=== PATIENT | female | born 1955 | race Caucasian/White ===

== ENCOUNTER 2018-05-13 20:11 | Emergency (ER) | payer BC, OTHER, SELFPAY ==
[2018-05-13 20:11] VITALS: BP 191/105; PULSE 84; RESP 20; TEMP 36.7; O2SAT 100; BMI 28.8
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
[2018-05-13] MEDS: Morphine 4 MG/ML Syringe IM (22:22)
[2018-05-13] MEDS: Ondansetron 4 MG/2 ML Vial IM (22:22)
[2018-05-13] MEDS: Diphth,Pertuss(Acell),Tet Vac 0.5 ML Vial IM (22:23)
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
[2018-05-13] MEDS: HYDROcodone Bitartrate/Apap 5/325 Tablet PO (23:04)
--- NOTE | 2018-05-13 23:04 | ED.DEP ---
ED Disposition - Plan for ED Patient: Chief Complaint: Lower Extremity Injury Instructions: ED Fx Foot Prescriptions: Hydrocodone Bitart/Apap 5-325 [[place] 5MG-325MG] 1 tab PO Q4H PRN PRN 2 Days #20 tab PRN Reason: Pain Cephalexin [Keflex] 500 mg PO Q6 #40 cap Referrals: Tonya Adams DO [Primary Care Provider] - Margarita Boyce DPM [STAFF PHYSICIAN] - 1 Day for another exam
[2018-05-13] MEDS: Cephalexin 250 MG Capsule 500 MG PO (23:05)
[2018-05-13 23:09] VITALS: BP 181/100; PULSE 81; RESP 15; O2SAT 98
== END 2018-05-13 23:20 | disposition home or self-care (01) ==
PROVIDERS: Emergency Provider Emergency Medicine; Family Provider Internal Medicine; PCP Internal Medicine
DX: S97.82XA Crushing injury of left foot, initial encounter (principal); S92.332A Displaced fracture of third metatarsal bone, left foot, initial encounter for closed fracture; S92.312A Displaced fracture of first metatarsal bone, left foot, initial encounter for closed fracture; S92.322A Displaced fracture of second metatarsal bone, left foot, initial encounter for closed fracture; S92.512A Displaced fracture of proximal phalanx of left lesser toe(s), initial encounter for closed fracture; S91.312A Laceration without foreign body, left foot, initial encounter; W22.8XXA Striking against or struck by other objects, initial encounter; Y93.9 Activity, unspecified; Y92.9 Unspecified place or not applicable
CPT/HCPCS: 12001; 29515; 73630; 90715; 96372; 99283; J2405

== ENCOUNTER → 2018-05-18 13:33 | Outpatient (CLI) | payer BC, OTHER, SELFPAY ==
[2018-05-18 14:51] LABS: Vitamin D,25 Hydroxy 27.8 ng/mL (29.95-100.01)
== END ==
PROVIDERS: Family Provider Internal Medicine; PCP Internal Medicine; Referring Provider Podiatrist; Visit Provider Podiatrist
DX: E55.9 Vitamin D deficiency, unspecified (principal); S92.309A Fracture of unspecified metatarsal bone(s), unspecified foot, initial encounter for closed fracture; X58.XXXA Exposure to other specified factors, initial encounter; Y93.9 Activity, unspecified; Y92.9 Unspecified place or not applicable
CPT/HCPCS: 36415; 82306

== ENCOUNTER → 2019-05-11 10:50 | Outpatient (CLI) | payer OTHER, SELFPAY ==
[2019-05-11 10:33] VITALS: BMI 28.8
--- NOTE | 2019-05-11 10:51 | RAD_ITS ---
STUDY: X-RAY - PELVIS AND LEFT HIP REASON FOR EXAM: Pain. TECHNIQUE: 2 views of the pelvis and hip. COMPARISON: None. FINDINGS: There are surgical clips in the right hemipelvis. There are degenerative changes of the lower lumbar spine. Normal bilateral iliac wings, sacroiliac joints and visualized sacrum. Normal bilateral superior and inferior pubic rami. There are mild degenerative changes of the pubic symphysis. Normal bilateral ischial tuberosities. Normal visualized femoral head. There is a small marginal osteophyte of the left femoral head and moderate to severe joint space narrowing of the superior left hip. RAD/HIP, UNI W/ Pelvis 2-3 Views IMPRESSION: Left hip arthrosis. Electronically Signed: Charly Aguirre MD at 10:28 EDT Tel , Service support ,
== END ==
PROVIDERS: Family Provider Internal Medicine; PCP Internal Medicine; Referring Provider Orthopaedic Surgery; Visit Provider Orthopaedic Surgery
DX: M25.552 Pain in left hip (principal)
CPT/HCPCS: 73502

== ENCOUNTER 2019-06-01 23:37 | Emergency (ER) | payer OTHER, SELFPAY ==
[2019-05-11 10:33] VITALS: BMI 28.8
[2019-06-01 23:38] VITALS: BP 174/88; PULSE 84; RESP 19; TEMP 36.4; O2SAT 100; BMI 28.2
--- NOTE | 2019-06-02 00:02 | ED.VIS.GEN ---
History of Present Illness Chief Complaint: Lower Extremity Injury Informant: Patient Narrative: Patient presents with left hip pain that is chronic. She saw orthopedics and degenerative changes. She is in physical therapy which is been worsening her pains at nighttime. In the last 3 days she has had difficulty with the pain and sleeping. Requesting something stronger for pain. She was told they would not give her narcotics. She is on Mobic which has not been helping much. Worse with movement. - Past Medical History (1) HTN (hypertension) Status: Chronic Past Medical History - Allergies and Home Meds Allergies/Adverse Reactions: Allergies No Known Allergies Allergy (Verified 06/01/19 23:41) Primary Care Physician: Tonya Adams DO [Primary Care Provider] - Prior records reviewed: Yes Past Medical History: - - Problem list see Surgical History: - - vein stripping Smoking Status: Never smoker Alcohol: None Drugs: None Review of Systems General: Denies: Chills, Fever, Sweats Eyes: Denies: Visual changes - bilaterally, Diplopia ENT: Denies: Rhinorrhea, Sore throat Cardiovascular: Denies: Chest pain, Palpitations Respiratory: Denies: Dyspnea, Cough, Dyspnea on exertion Gastrointestinal: Denies: Abdominal pain, Nausea, Vomiting, Diarrhea, Melena, Hematochezia Genitourinary: Denies: Dysuria, Hematuria, Frequency Musculoskeletal: Reports: Extremity Pain. Denies: Back pain Skin: Denies: Rash, Wounds Neurological: Denies: Headache, Weakness, Numbness Physical Exam Vital Signs/Narrative: Vital Signs Temp Pulse Resp BP Pulse Ox 06/01/19 23:38 97.5 F L 84 19 H 174/88 H 100 General: Well nourished, Well developed, No Acute Distress Head: Normocephalic, Atraumatic Eyes: Perrl, EOMI ENT: Moist mucous membranes, No rhinorrhea Neck: Supple, Nontender Cardiovascular: Regular rate, Regular rhythm, No murmurs Respiratory: No distress, CTA bilaterally, Chest nontender Abdomen: Soft, Nontender, Nondistended, Normal bowel sounds Back: Nontender, Normal Inspection Extremities: No edema, Tenderness - Tenderness left hip laterally with decreased range of motion secondary to pain.. Negative for: Nontender Skin: Normal color, No rash Neurological: Alert, Oriented x3, Cranial nerves II-XII grossly intact, Normal Strength, Normal Sensation Psychological: Normal affect, Normal Mood Diagnostic/Tx/Re-eval - Medical Decision Making Patient given oxycodone in the department with a short course of narcotics to help her with breakthrough pain. She will follow-up as an outpatient ED Disposition - Plan for ED Patient: Disposition: Home or Assisted Living Diagnosis: Arthritis of left hip Instructions: ED Osteoarthritis Prescriptions: Oxycodone HCl/Acetaminophen [Percocet 5/325] 1 - 2 tab PO Q6H PRN PRN 3 Days #12 tab PRN Reason: Pain Prescription Printed Referrals: Tonya Adams DO [Primary Care Provider] -
[2019-06-02] MEDS: oxyCODONE 5 MG Tablet 10 MG PO (00:21)
== END 2019-06-02 00:26 | disposition home or self-care (01) ==
PROVIDERS: Emergency Provider Emergency Medicine; Family Provider Internal Medicine; PCP Internal Medicine
DX: M16.12 Unilateral primary osteoarthritis, left hip (principal); I10 Essential (primary) hypertension; Z79.899 Other long term (current) drug therapy
CPT/HCPCS: 99283

== ENCOUNTER 2019-06-22 10:30 | Outpatient (RCR) | payer OTHER, SELFPAY ==
[2019-05-11 10:33] VITALS: BMI 28.8
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
--- NOTE | 2019-06-22 11:06 | HP.PTDCSUM ---
HP - PT D/C Summary It has been my pleasure to treat KATIE GARCIA under orders from Ni Perry DO, for the diagnosis of L hip OA/ DDD LS spine for a total of 11 visit(s). Discharge Date: 06/22/19 Please see the following information for a summary of their discharge status. - Subjective Subjective: L THR is Jul 16. He was glad that she was doing AT. She was in the ER for pain a few weeks ago. She feels that she is getting stronger. She was really achy last night but yesterday she was feeling good. Pt feels that she can do her exercises on her own and [place] gave her an exercises sheet. Walking on a good day pain is 3-4/10 and on a bad day she is worse. Occ she still has the feeling that her L leg will give out on her.... not quite as bad. - Pain L hip pain Pain Intensity (Out of 10): 6 back pain Pain Intensity (Out of 10): 0 - Overall Improvement % Improvement: 70 - Objective Objective/Function: Gait: walks with flexed trunk and short stride on the L and decreased stance time on the L. LE MMT: Increase L hip strength by 1/2 muscle grade ( at time of the eval: LE MMT: R hip flex 4/5 and L hip flex 4-/5, R hip abd 4/5 and L hip abd 4-/5, B knee flex and ext 4/5, pt is able to do 1/2 normal ROM bridge - Goals Goal 1:: I HEP Goal Progress: Goal Met Goal 2:: Decrease L hip pain by 50% to 5/10 with walking Goal Progress: Progressing Goal 3:: Increase L hip strength by 1/2 muscle grade ( at time of the eval: LE MMT: R hip flex 4/5 and L hip flex 4-/5, R hip abd 4/5 and L hip abd 3+/5, B knee flex and ext 4/5, pt is able to do 1/2 normal ROM bridge. Pt is able to heel raise but only 1/2 the normal ROM and toe raise with slight LOB). Goal Progress: Progressing Goal 4:: Walk with a more normal gait pattern and feel like she can walk without having to take the cane with her due to L leg giving out on her. Goal Progress: Progressing - Plan Plan: DC PT - D/C Information Discharge Comments: DC PT to I HEP or I AT appointment If there are questions or concerns regarding this patient's physical therapy, please feel free to call me at [phone]. Thank you for the referral of this patient. Sincerely, Rika Lo, MPT
== END 2019-06-22 19:00 | disposition home or self-care (01) ==
LOC: PT 10:30
PROVIDERS: Family Provider Internal Medicine; PCP Internal Medicine; Visit Provider Orthopaedic Surgery
DX: M16.12 Unilateral primary osteoarthritis, left hip (principal); M51.37 Other intervertebral disc degeneration, lumbosacral region
CPT/HCPCS: 97113; 97161; 97530

== ENCOUNTER → 2019-12-03 | Outpatient (CLI) | payer OTHER, SELFPAY ==
[2019-12-03 16:14] LABS: Potassium 5.1 mmol/L (3.5-5.1)
== END | disposition home or self-care (01) ==
PROVIDERS: PCP Internal Medicine; Referring Provider Internal Medicine; Visit Provider Internal Medicine
DX: E87.5 Hyperkalemia (principal)
CPT/HCPCS: 84132

== ENCOUNTER 2020-05-05 09:30 | Outpatient (RCR) | payer OTHER, SELFPAY ==
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
--- NOTE | 2020-05-05 10:21 | HP.PTDCSUM ---
It has been my pleasure to treat KATIE GARCIA referred by Ignacio Lawrence PA-C, with the diagnosis of LUMBAR DDD AND STRAIN. S/P LEFT THR. for a total of 10 visit(s). Discharge Date: Please see the following information for a summary of their discharge status. Subjective: PATIENT REPORTS SHE DOESN'T HAVE THE TINGLING IN HER LEGS AT ALL ANYMORE. STATES SHE HAS SKIPPED DOSES OF HER MALOXACAM AND STILL NO PAIN. STATES SHE CAN GO ALL DAY WITHOUT TAKING ANYTHING FOR PAIN AND WITHOUT PAIN. STATES SHE IS DOING HER HOME EX PROGRAM AND IT IS JUST RIGHT. DID SOME OF THE WATER EX'S INDEP'LY TODAY TOO WITHOUT DIFFICULTY. PATIENT REPORTS SHE HAS A MEMBERSHIP. STATES SHE IS HAPPY WITH HOW PT HAS GONE AND SHE IS READY TO BE DISCHARGED. % Improvement: 100 Objective/Function: PATIENT WAS SEEN TODAY FOR RE-ASSESSMENT OF PROGRESS TOWARD THE SET PT GOALS AND THE NEED FOR FURTHER PHYSICAL THERAPY VS READINESS FOR DISCHARGE. ALL GOALS HAVE BEEN MET AND PATIENT IS APPROPRIATE FOR DISCHARGE TO INDEP EX AT THIS TIME. SHE IS AGREEABLE. UPON EXAM TODAY OBJECTIVE TESTS ARE SIMILAR TO INITIAL EVAL BUT SHE IS REPORTING LESS PAIN, IMPROVED FUNCTION AND HAS TOLERATED PROGRESSIVE RESISTIVE EX WELL AND IS NOW INDEP WITH BOTH HOME AND WATER EX'S. Goal 1:: DECREASE C/O LOW BACK PAIN Goal Progress: Goal Met Goal 2:: IMPROVE LIFTING, STANDING, SOCIAL LIFE AND WORK/HOMEMAKING FUNCTION Goal Progress: Goal Met Goal 3:: INSTRUCT IN PROPHYLAXIS Goal Progress: Goal Met Plan: D/C TO INDEP EX. If there are questions or concerns regarding this patient's physical therapy, please feel free to call me at [phone]. Thank you for the referral of this patient. Sincerely, Kristine Barrera, PT, Cert MDT
== END 2020-05-05 17:00 | disposition home or self-care (01) ==
LOC: PT 09:30
PROVIDERS: PCP Internal Medicine; Referring Provider Physician Assistant Surgical; Visit Provider Physician Assistant Surgical
DX: M51.36 Other intervertebral disc degeneration, lumbar region (principal); S39.012D Strain of muscle, fascia and tendon of lower back, subsequent encounter; Z96.642 Presence of left artificial hip joint
CPT/HCPCS: 97112; 97113; 97162; 97164

== ENCOUNTER → 2021-01-26 | Outpatient (CLI) | payer OTHER, SELFPAY | END | disposition home or self-care (01) | LOC: LABSPEC 15:01 | PROVIDERS: PCP Internal Medicine; Referring Provider Internal Medicine; Visit Provider Internal Medicine | DX: E87.5 Hyperkalemia (principal) | CPT/HCPCS: 84132 ==

== ENCOUNTER 2021-03-01 10:14 | Observation (INO) | payer OTHER, SELFPAY ==
[2021-03-01] VITALS (11 sets, daily range): BP systolic 124–169; BP diastolic 61–99; PULSE 84–105; RESP 16–18; TEMP 36.7–37.6; O2SAT 94–100; BMI 30.3
--- NOTE | 2021-03-01 | HERN_PTH ---
PATIENT: KATIE GARCIA LOC: [id number] U#:[id number] AGE/SX: 65/F ROOM: [facility] RE03/01/[address]: Dr. Soha Tellez MD : [id number] BED: 1 DIS: 03/02/2021 SPEC #: [id number] RECD: 03/02/21 06:35 STATUS: RADHA LIM #: [id number] BILLY: 03/01/21 00:[address]: Soha Tellez DEPT: SURGICAL PATHOLOGY RECD BY: León Wren ENTERED: 03/02/21 08:06 SP TYPE: Hernia OTHR DR: DO Dr. Rex Eagle DO Tissues: HERNIA Procedures: Surgery Specimen Level II HEADER OPERATION: Repair of incarcerated incisional hernia PRE-OP DIAGNOSIS: Incarcerated incisional hernia TISSUE SUBMITTED: Incisional hernia sac MICROSCOPIC DIAGNOSIS Incisional hernia sac, herniorrhaphy: Fibrosis and minimal chronic inflammation. AM:bianca 03/05/2021 MICROSCOPIC DESCRIPTION Slides are reviewed. GROSS DESCRIPTION Received in fixative is one container labeled with the patient's name and designated incisional hernia sac. The specimen consists of two pieces of maurice-pink soft tissue that in aggregate measure 6 x 1 x 0.5 cm. No mass lesion is identified. The specimen is totally submitted in one cassette. / SJ:bianca 03/02/21 TC:5 CPT: 02004
--- NOTE | 2021-03-01 10:35 | EDS_ITS ---
HPI History of Present Illness Chief Complaint: Abd Pain Informant: patient Onset/Context/Timing Onset: Days Context: Gradual Onset Current Severity: Mild Maximum Severity: Moderate Narrative Narrative: Patient present secondary to abdominal pain. She reports eating dinner Friday evening and having it does not quite settle right. By Friday afternoon she developed sharp pain in the periumbilical region. She started vomiting. She states she has not had a bowel movement since that time but she is passing some gas. She denies fever or chills. Prior abdominal surgery significant for hernia repair with a small area of small bowel resection. [facility] Medical History (Updated 03/01/21 @ 14:[address] Selena Gordon MD) Arthritis HTN (hypertension) Home Medications amlodipine 5 mg tablet 5 mg PO DAILY #30 tab 05/11/19 [History Last Taken Unknown] lisinopril 20 mg tablet 20 mg PO BID #60 tab 05/11/19 [History Last Taken Unknown] ropinirole 0.5 mg tablet 1 mg PO QHS #30 tab 05/11/19 [History Last Taken Unknown] Allergy/AdvReac Type Severity Reaction Status Date / Time Iodinated Contrast Media AdvReac Other Verified 03/01/21 10:16 [CONTRASTS] Family History Mother Rheumatoid arthritis Surgical History (Updated 03/01/21 @ 10:[address] Selena Gordon MD) H/O hernia repair S/P hip replacement S/P small bowel resection Social History Smoking Status: Never smoker ROS ROS ED Constitutional Constitutional ED: Denies chills or fever(s) Eyes Eyes: Denies change in vision ENT ENT ED: Denies sore throat Cardiovascular Cardiovascular: Denies chest pain Respiratory/Chest Respiratory/Chest: Denies cough or dyspnea Gastrointestinal Gastrointestinal: Reports abdominal pain, constipation, nausea and vomiting; Denies diarrhea Genitourinary Genitourinary ED: Denies dysuria Musculoskeletal Musculoskeletal: Denies back pain Integumentary Denies rash Neurologic Neurologic: Denies headache(s) or weakness Psychiatric Psychiatric: Denies anxiety or depression Endocrine Endocrinology: Denies polydipsia or polyuria Allergic/Immunologic Allergic/Immunologic ED: Denies urticaria EXAM Physical Exam Const Vital Signs: 03/01/21 10:16 03/01/21 12:30 03/01/21 13:59 Temperature 98.4 F Temperature Source Temporal Pulse Rate 84 105 H 104 H Respiratory Rate 16 16 18 Blood Pressure 163/85 H 157/99 H 169/94 H Blood Pressure Mean 111 118 119 Pulse Ox 100 98 96 Oxygen Delivery Method Room Air Room Air Room Air Positive well nourished and well developed General Appearance ED: well developed HEENT Reports normocephalic and head/scalp atraumatic Eyes PERRL and EOMs intact bilaterally Neck supple Chest Wall inspection of chest normal and palpation of chest normal Resp normal respiratory effort and clear to auscultation bilaterally Cardio regular rate and regular rhythm GI non-tender Auscultation: hypoactive bowel sounds Palpation: soft Extremity normal to inspection Neuro oriented x3 and no sensory deficits noted Sensorium / Orientation: alert Motor Exam: strength 5/5 throughout Psych mental status grossly normal Skin no rashes or lesions noted MDM MDM MDM Narrative Medical decision making narrative: Patient is given Zofran and IV fluids. Labs and CT scan of the abdomen and pelvis is obtained. Lab Data Attestation: I reviewed the patient's lab results. Labs: Laboratory Results - last 24 hr 03/01/21 03/01/21 11:00 11:00 WBC 10.2 RBC 4.82 Hgb 14.5 Hct 42.4 MCV 88.0 MCH 30.1 MCHC 34.2 RDW Std Deviation 39.8 RDW Coeff of Armando 12.3 Plt Count 466 H MPV 8.4 Immature Gran % (Auto) 0.200 Neut % (Auto) 84.8 H Lymph % (Auto) 7.2 L [place] % (Auto) 7.5 Eos % (Auto) 0.0 Baso % (Auto) 0.3 Absolute Neuts (auto) 8.6 H Absolute Lymphs (auto) 0.73 L Nucleated RBC % 0 Sodium 122 L Potassium 3.6 Chloride 81 L Carbon Dioxide 33.0 H Anion Gap 8 BUN 34 H Creatinine 2.88 H Estim Creat Clear Calc 18.47 Est GFR (MDRD) Af Amer 21 L Est GFR (MDRD) Non-Af 18 L BUN/Creatinine Ratio 11.8 Glucose 139 H Calcium 10.9 H Total Bilirubin 0.80 Direct Bilirubin 0.23 AST 33 ALT 26 Alkaline Phosphatase 122 H Total Protein 9.6 H Albumin 4.5 Globulin 5.1 H Radiography Diagnostic Testing: Radiology Impression Abdomen CT 03/01/21 12:20 IMPRESSION: Umbilical hernia containing small bowel causing proximal small bowel dilatation and obstruction. Electronically Signed: Severo Wright MD at 13:02 EDT , Service support , Treatment and Re-Evaluation Comments:: Patient previously had problems with low sodium and at that time is felt to be secondary to getting IV contrast for CT image. Therefore today CT was done with p.o. contrast only. Patient's lab work actually does show recurrent hyponatremia with a sodium of 122. Patient also has acute renal insufficiency with a creatinine of 2.88. Most recent creatinine was 0.7. CT scan reveals evidence of a small bowel obstruction secondary to an umbilical hernia. Test results discussed with patient and daughter at bedside. I will speak with surgery on-call. Discharge Plan Triage Chief Complaint: Abd Pain ED Provider: Selena Gordon Dx/Rx/DC Orders Clinical Impression: Acute renal failure, Hyponatremia, SBO (small bowel obstruction), Hernia, umbilical Prescriptions: No Action amlodipine 5 mg tablet 5 mg PO DAILY Qty: 30 RF: 0 ropinirole 0.5 mg tablet 1 mg PO QHS Qty: 30 RF: 0 lisinopril 20 mg tablet 20 mg PO BID Qty: 60 RF: 0 Primary Care Provider: Tonya Adams Referrals: Tonya Adams DO [Primary Care Provider] - Disposition Disposition: Acute Care Hospital [facility]
[2021-03-01] MEDS: 0.9% Normal Saline 1,000 ML 150 ML IV ×2 (11:04→18:28)
[2021-03-01] MEDS: Ondansetron 4 MG/2 ML Vial IV (11:04)
[2021-03-01 11:11] LABS: Absolute Lymphocyte Count 0.73 X10^3/uL (0.83-4.51); Absolute Neutrophil Count 8.6 X10^3/uL (2.0-7.7); Basophil# 0.03 X10^3/uL; Basophil% 0.3 % (0-1); Hematocrit 42.4 % (37-47); Hemoglobin 14.5 g/dL (12.0-15.0); Lymphocyte # 0.73 X10^3/ul (0.83-4.51); Lymphocyte % 7.2 % (19-41); Mean Corp Hgb Conc 34.2 g/dL (32-36); Mean Corpuscular Hgb 30.1 pg (27.0-32.0); Mean Platelet Vol. 8.4 fl (6.2-12.0); Monocyte# 0.76 X10^3/uL; Monocyte% 7.5 % (0-10); NRBC Flagged by Analyzer 0 % (0-5); Neutrophil # 8.62 X10^3/uL (2.7-7.7); Neutrophil % 84.8 % (47-70); Platelet Count 466 K/mm3 (150-450); RBC Distribution Width CV 12.3 % (11.6-14.6); RBC Distribution Width SD 39.8 fl (35.1-43.9); Red Blood Count 4.82 M/mm3 (4.2-5.4); White Blood Count 10.2 K/mm3 (4.4-11.0)
[2021-03-01 11:27] LABS: AST(SGOT) 33 U/L (15-37); Alanine Aminotransfer ALT/SGPT 26 U/L (13-56); Albumin, Serum 4.5 g/dL (3.2-5.0); Alkaline Phosphatase 122 U/L (45-117); Anion Gap 8 (5-15); BUN 34 mg/dL (7-18); BUN/Creat Ratio 11.8 RATIO (10-20); Bilirubin, Direct 0.23 mg/dL (0.00-0.30); Calcium,Total 10.9 mg/dL (8.5-10.1); Chloride 81 mmol/L (98-107); Creatinine, Serum 2.88 mg/dL (0.55-1.02); EST Glomerular Filtration Rate 18 mL/min (>60); Est Glom Filt Rate - Afr Amer 21 mL/min (>60); Estimated Creatinine Clearance 18.47 ml/min; Globulin 5.1 g/dL (2.2-4.2); Glucose 139 mg/dL (74-106); Potassium 3.6 mmol/L (3.5-5.1); Protein, Total 9.6 g/dL (6.4-8.2); Sodium Level 122 mmol/L (136-145)
[2021-03-01] MEDS: 0.9% Normal Saline 1,000 ML 999 ML IV (12:06)
--- NOTE | 2021-03-01 12:20 | CT_ITS ---
STUDY: CT ABDOMEN AND PELVIS WITHOUT CONTRAST REASON FOR EXAM: Female, 65 years old. Abd pain RADIATION DOSAGE (If Supplied By Facility): CTDIvol = ( 19.82 ) mGy, DLP = ( 1054.84 ) mGycm TECHNIQUE: Transaxial images were obtained from the dome of the diaphragm to the symphysis pubis with oral contrast, and without intravenous contrast. Sagittal and coronal images were reconstructed. Individualized dose optimization techniques were used for this CT. COMPARISON: Comparison is made with prior study dated 03/29/2015. FINDINGS: Minimal increased markings at the lung bases suggest mild scarring or atelectasis. Coronary artery calcification. Normal liver. Normal gallbladder and extrahepatic biliary system. Normal spleen. Normal pancreas. Normal bilateral adrenal glands. Normal right kidney. Normal left kidney. Normal visualized stomach. There are dilated loops of the small intestine with a non-distended colon consistent with a small bowel obstruction. Small bowel loop is trapped within the umbilical hernia. The distal small bowel is unremarkable. There are multiple colonic diverticula consistent with diverticulosis. The appendix is visualized and appears normal. Normal abdominal aorta. Normal inferior vena cava. Normal retroperitoneum. Normal urinary bladder. There is evidence of prior right inguinal hernia repair. There are diffuse degenerative changes of the visualized lumbar spine. The patient is status post left total hip replacement. CT/Abdomen/Pel W ORAL Cont Only IMPRESSION: Umbilical hernia containing small bowel causing proximal small bowel dilatation and obstruction. Electronically Signed: Severo Wright MD at 13:02 EDT , Service support ,
--- NOTE | 2021-03-01 14:56 | EKG12_ITS ---
Test Reason : ABD PAIN Blood Pressure : / mmHG Vent. Rate : 105 BPM Atrial Rate : 105 BPM P-R Int : 172 ms QRS Dur : 084 ms QT Int : 334 ms P-R-T Axes : 042 000 010 degrees QTc Int : 441 ms Sinus tachycardia with Premature atrial complexes Moderate voltage criteria for LVH, may be normal variant Inferior infarct , age undetermined Abnormal ECG Confirmed by GIGI TAYLOR, JOSUE ([id number]), publishing editor SHELBY RIOJAS ([id number]) on 03/05/2021 9:13:22 AM Referred By: ALBARO Confirmed By:JOAN YU MD
--- NOTE | 2021-03-01 14:57 | PCM.HP.STD ---
HPI - General HPI Narrative KATIE GARCIA, is a 65 F who presents to the ER due to abdominal pain and nausea and vomiting. Patient states this started on Friday. Patient last had some broth yesterday but did had vomiting afterwards. Patient admits to some abdominal pain near her umbilicus towards the right also feels a bulge. Patient previously had surgery due to incarcerated right femoral hernia in 2014 patient did have a small bowel resection at that time. Patient's hernia per CT abdomen pelvis is at the infraumbilical incision. Patient's white blood count is normal with a left shift. Patient does have hyponatremia of 122 as well as acute kidney failure likely due to nausea vomiting/dehydration. [facility] Medical History Arthritis HTN (hypertension) Non-smoker Home Medications amlodipine 5 mg tablet 5 mg PO DAILY #30 tab 05/11/19 [History Last Taken 02/27/21] lisinopril 20 mg tablet 20 mg PO BID #60 tab 05/11/19 [History Last Taken 02/27/21] acetaminophen [Tylenol Extra Strength] 1,000 mg PO DAILY PRN 03/01/21 [History Last Taken 02/26/21] ropinirole 2 mg PO QHS 03/01/21 [History Last Taken 02/28/21] Allergy/AdvReac Type Severity Reaction Status Date / Time Iodinated Contrast Media AdvReac Other Verified 03/01/21 10:16 [CONTRASTS] Family History Mother Rheumatoid arthritis Surgical History (Updated 03/01/21 @ 10:[address] Selena Gordon MD) H/O hernia repair S/P hip replacement S/P small bowel resection Social History Smoking Status: Never smoker Vital Signs Vital Signs Vital Signs: 03/01/21 10:16 03/01/21 12:30 03/01/21 13:59 Temperature 98.4 F Temperature Source Temporal Pulse Rate 84 105 H 104 H Respiratory Rate 16 16 18 Blood Pressure 163/85 H 157/99 H 169/94 H Blood Pressure Mean 111 118 119 Pulse Ox 100 98 96 Oxygen Delivery Method Room Air Room Air Room Air Weight Weight: 190 lb 14.725 oz Body Mass Index (BMI) 30.3 Physical Exam Const alert, oriented x3 and no apparent distress HEENT normocephalic and head/scalp atraumatic Resp normal respiratory effort Cardio regular rate GI soft to palpation; Negative for non-distended Palpation: tender periumbilical (Bulge noted to the right of the umbilicus) and hernia other (Incisional hernia near umbilicus); Negative for guarding Extremity no clubbing, cyanosis or edema Neuro CN's II-XII intact bilaterally Psych mental status grossly normal Results Lab / Micro Data Result Diagrams: 03/01/21 11:00 03/01/21 11:00 Labs: Laboratory Results - last 24 hr 03/01/21 11:00: WBC 10.2, RBC 4.82, Hgb 14.5, Hct 42.4, MCV 88.0, MCH 30.1, MCHC 34.2, RDW Std Deviation 39.8, RDW Coeff of Armando 12.3, Plt Count 466 H, MPV 8.4, Immature Gran % (Auto) 0.200, Neut % (Auto) 84.8 H, Lymph % (Auto) 7.2 L, [place] % (Auto) 7.5, Eos % (Auto) 0.0, Baso % (Auto) 0.3, Absolute Neuts (auto) 8.6 H, Absolute Lymphs (auto) 0.73 L, Nucleated RBC % 0 03/01/21 11:00: Sodium 122 L, Potassium 3.6, Chloride 81 L, Carbon Dioxide 33.0 H, Anion Gap 8, BUN 34 H, Creatinine 2.88 H, Estim Creat Clear Calc 18.47, Est GFR (MDRD) Af Amer 21 L, Est GFR (MDRD) Non-Af 18 L, BUN/Creatinine Ratio 11.8, Glucose 139 H, Calcium 10.9 H, Total Bilirubin 0.80, Direct Bilirubin 0.23, AST 33, ALT 26, Alkaline Phosphatase 122 H, Total Protein 9.6 H, Albumin 4.5, Globulin 5.1 H Radiology Impression Abdomen CT 03/01/21 12:20 IMPRESSION: Umbilical hernia containing small bowel causing proximal small bowel dilatation and obstruction. Electronically Signed: Severo Wright MD at 13:02 EDT , Service support , Assessment & Plan Assessment/Plan (1) Incarcerated incisional hernia: PLAN: Discussed with patient and her daughter would plan for surgery for repair of incisional hernia repair with possible bowel resection, possible mesh. Discussed patient the procedure as well as risk include not limited to bleeding, infection, recurrent hernia, need for bowel resection, and anesthesia. Patient and her daughter had no further question this time. Hyponatremia, acute kidney failure. We will have medicine on for consult to help with these issues. Likely also due to patient's nausea and vomiting since Friday. Soha Tellez M.D. Pager: [phone] [facility] [address] [place] [address] [address] [place] [address] Office: [phone] Procedure Criteria Type of Procedure Procedure Type: Elective Elective Risks - COVID COVID Risk Discussion: The surgeon/proceduralist and patient have discussed in detail the risk of exposure to and/or potential harm posed by the COVID-19 virus with having a surgery/procedure at this time versus the risk of delaying the surgery/procedure. It is not possible to know either the risk of delaying the surgery or procedure or chance of getting an infection with perfect accuracy, but a joint decision was made between the patient and the surgeon/proceduralist to proceed at this time with the scheduled surgery/procedure as indicated on the consent form.
--- NOTE | 2021-03-01 14:59 | RAD_ITS ---
HISTORY: NG/OG Verification EXAMINATION/TECHNIQUE: XR Abdomen 1 View: COMPARISON: CT abdomen and pelvis same day FINDINGS: Enteric tube in the stomach. Scattered distended small bowel loops persist. No acute bony abnormalities. RAD/Abdomen Single View (Portable) IMPRESSION: Enteric tube in the stomach. at 1639 Reported and signed by: Rod Arnold MD Electronically Signed: Rod Arnold MD at 16:38 EDT Tel , Service support ,
[2021-03-01] MEDS: Bupivacaine Mpf 0.5% 30 ML VIAL (16:30)
--- NOTE | 2021-03-01 17:01 | OP.PCM_ITS ---
Report of Operation Date of Procedure: 03/01/21 Pre-Operative Diagnosis: Incarcerated incisional hernia causing bowel obstructi on Post-Operative Diagnosis: Same Surgery/Procedure Performed:: Repair of incisional hernia Surgeon: Soha Tellez resident service coordinator: Kae Glass Type of Anesthesia: General/Supplemental Anesthesiologist: Rogelio Phelps Special Medications: Ancef 2 g IV x1 Specimen's removed: Hernia sac Estimated Blood Loss (mL): 10 cc Fluids Replaced: 700 cc Description of Procedure: Patient was brought into the room placed supine on the operating table. Correct patient, procedure, site, positioning, special, was verified prior to procedure. General anesthesia was induced. The abdomen was prepped draped in usual sterile fashion. The previous curvilinear incision below the umbilicus was reincised with with a 15 blade scalpel. This was deepened with electrocautery. Small bowel was noticed below blue discoloration, was able to enlarged the hernia opening and the bowel did pink up. [place] was placed on the small bowel and was placed back in the abdomen. The fascia of the hernia was cleared. The small bowel was reexamined and was viable. The hernia was closed with 3 [id number] 0 Prolene sutures. The wound was irrigated with saline. Hemostasis achieved with electrocautery. The incision was closed with 3-0 Vicryl subdermal interrupted sutures and the skin was closed with interrupted 4-0 Monocryl sutures. Steri- Strips and Telfa and OpSite were placed over the incision. Patient was extubated. Patient tolerated procedure well and was taken to the postanesthesia care unit in stable condition. Complications none
[2021-03-01 19:09] LABS: Anion Gap 11 (5-15); BUN 34 mg/dL (7-18); BUN/Creat Ratio 11.3 RATIO (10-20); Calcium,Total 9.1 mg/dL (8.5-10.1); Chloride 84 mmol/L (98-107); EST Glomerular Filtration Rate 17 mL/min (>60); Est Glom Filt Rate - Afr Amer 20 mL/min (>60); Estimated Creatinine Clearance 17.74 ml/min; Glucose 117 mg/dL (74-106); Potassium 4.1 mmol/L (3.5-5.1); Sodium Level 127 mmol/L (136-145)
--- NOTE | 2021-03-01 19:35 | PCM.PN.HOSP ---
Subjective Subjective Patient was seen and examined today at the request of general surgery, she came to the ER today at [facility] with several days of nausea and vomiting and abdominal abdominal pain. She was found to have an incarcerated incisional hernia and she underwent surgery today. It was noted that she had hyponatremia in the emergency room-patient has a history in the past of hyponatremia but it was approximately 6 years ago during the time she had an incarcerated inguinal hernia repaired. Patient states that this examiner that she had lab work done recently that was normal and she does not have a history of chronic hyponatremia. Patient's other medical problems include hypertension. Patient's creatinine today in the ER was elevated at 2.88, her last creatinine of record here was in March 2015 and it was normal. I am seeing the patient tonight postop, she is alert and has no complaints at this time. Objective Data Objective Data Vital Signs: Vital Signs Temp Pulse Resp BP Pulse Ox 98.0 F 94 18 149/76 H 94 03/01/21 18:31 03/01/21 18:31 03/01/21 18:31 03/01/21 18:31 03/01/21 18:31 Oxygen Delivery Method Room Air Weight: 86.6 kg Body Mass Index (BMI) 30.3 Intake & Output: Intake and Output for Last 24 Hours 02/27/21 02/28/21 03/01/21 23:59 23:59 23:59 Intake Total 1927.5 / 1927.5 Output Total 1000 / 1000 Balance 927.5 / 927.5 Lab / Micro Data Result Diagrams: 03/01/21 11:00 03/01/21 17:50 Labs: Laboratory Results - last 24 hr 03/01/21 11:00: WBC 10.2, RBC 4.82, Hgb 14.5, Hct 42.4, MCV 88.0, MCH 30.1, MCHC 34.2, RDW Std Deviation 39.8, RDW Coeff of Armando 12.3, Plt Count 466 H, MPV 8.4, Immature Gran % (Auto) 0.200, Neut % (Auto) 84.8 H, Lymph % (Auto) 7.2 L, [place] % (Auto) 7.5, Eos % (Auto) 0.0, Baso % (Auto) 0.3, Absolute Neuts (auto) 8.6 H, Absolute Lymphs (auto) 0.73 L, Nucleated RBC % 0 03/01/21 11:00: Sodium 122 L, Potassium 3.6, Chloride 81 L, Carbon Dioxide 33.0 H, Anion Gap 8, BUN 34 H, Creatinine 2.88 H, Estim Creat Clear Calc 18.47, Est GFR (MDRD) Af Amer 21 L, Est GFR (MDRD) Non-Af 18 L, BUN/Creatinine Ratio 11.8, Glucose 139 H, Calcium 10.9 H, Total Bilirubin 0.80, Direct Bilirubin 0.23, AST 33, ALT 26, Alkaline Phosphatase 122 H, Total Protein 9.6 H, Albumin 4.5, Globulin 5.1 H 03/01/21 17:50: Sodium 127 L, Potassium 4.1, Chloride 84 L, Carbon Dioxide 32.0, Anion Gap 11, BUN 34 H, Creatinine 3.00 H, Estim Creat Clear Calc 17.74, Est GFR (MDRD) Af Amer 20 L, Est GFR (MDRD) Non-Af 17 L, BUN/Creatinine Ratio 11.3, Glucose 117 H, Calcium 9.1 Micro: Microbiology 03/01/21 15:01 Mucosa - Nose SARS-CoV-2 Antigen (Rapid) - Final Radiography Diagnostic Testing: Radiology Impression Abdomen CT 03/01/21 12:20 IMPRESSION: Umbilical hernia containing small bowel causing proximal small bowel dilatation and obstruction. Electronically Signed: Severo Wright MD at 13:02 EDT , Service support , KUB X-Ray 03/01/21 14:59 IMPRESSION: Enteric tube in the stomach. at 1639 Reported and signed by: Rod Arnold MD Electronically Signed: Rod Arnold MD at 16:38 EDT Tel , Service support , Physical Exam Const alert, oriented x3, no apparent distress and average body habitus General Appearance: cooperative, well kempt and well developed Orientation / Consciousness: awake, oriented to person, oriented to place and oriented to time HEENT normocephalic and moist oral mucous membranes Eyes PERRL, EOMs intact bilaterally and conjunctivae normal Neck nuchal rigidity, supple, no JVD, thyroid normal and no carotid bruits General: trachea midline Resp normal respiratory effort, no retractions, no use of accessory muscles and clear to auscultation bilaterally Auscultation: Negative for rales, rhonchi or wheezes Cardio regular rate, regular rhythm, S1 normal heart sound, S2 normal heart sound, no murmurs, no rub and no gallops GI GI Narrative: NG tube is in place Extremity normal to inspection and no clubbing, cyanosis or edema Skin no rashes or lesions noted General Skin Exam: no breakdown Neuro oriented x3, CN's II-XII intact bilaterally, no focal motor deficits and no sensory deficits noted Sensorium / Orientation: awake and alert Speech: speech normal Motor Exam: strength 5/5 throughout Psych thought process normal and affect normal Assessment & Plan Assessment/Plan (1) Hyponatremia: PLAN: 1. Acute kidney injury-it is probable the patient has acute kidney injury rather than chronic kidney injury, I agree with vigorous fluid administration, I talked with general surgery about this, labs will be obtained in the morning #2 hyponatremia-probably secondary to persistent vomiting, patient's last sodium was 127, again patient should receive IV normal saline and this should correct without difficulty. #3 essential hypertension-I will write for hydralazine every 6 hours IV as needed for blood pressure above 180 systolic #4 status post surgery for incarcerated incisional hernia Charges/Coding Visit Charges Inpatient E&M: 02712 Subs Hosp L2
[2021-03-01] MEDS: Pramipexole Di-HCl 1 MG Tablet PO (21:20)
[2021-03-02] MEDS: 0.9% Normal Saline 1,000 ML 150 ML IV ×2 (02:19→08:02)
[2021-03-02 04:30] VITALS: BP 128/61; PULSE 91; RESP 16; TEMP 36.6; O2SAT 99
[2021-03-02 06:33] LABS: Absolute Lymphocyte Count 0.38 X10^3/uL (0.83-4.51); Absolute Neutrophil Count 6.8 X10^3/uL (2.0-7.7); Basophil# 0.03 X10^3/uL; Basophil% 0.4 % (0-1); Eosinophil# 0.05 X10^3/uL; Eosinophils% 0.6 % (0-5); Hematocrit 35.4 % (37-47); Hemoglobin 11.8 g/dL (12.0-15.0); Lymphocyte # 0.38 X10^3/ul (0.83-4.51); Lymphocyte % 4.8 % (19-41); Mean Corp Hgb Conc 33.3 g/dL (32-36); Mean Corpuscular Hgb 29.7 pg (27.0-32.0); Mean Corpuscular Volume 89.2 fL (81-99); Mean Platelet Vol. 8.6 fl (6.2-12.0); Monocyte# 0.65 X10^3/uL; Monocyte% 8.2 % (0-10); NRBC Flagged by Analyzer 0 % (0-5); Neutrophil # 6.83 X10^3/uL (2.7-7.7); Neutrophil % 85.7 % (47-70); POSITIVE DIFFERENTIAL YES; Platelet Count 356 K/mm3 (150-450); RBC Distribution Width CV 12.1 % (11.6-14.6); RBC Distribution Width SD 39.9 fl (35.1-43.9); Red Blood Count 3.97 M/mm3 (4.2-5.4)
[2021-03-02 06:36] LABS: Differential Indicated SCAN CRITERIA MET
[2021-03-02 06:57] LABS: Anion Gap 8 (5-15); BUN 30 mg/dL (7-18); BUN/Creat Ratio 17.9 RATIO (10-20); Calcium,Total 7.9 mg/dL (8.5-10.1); Chloride 94 mmol/L (98-107); Creatinine, Serum 1.68 mg/dL (0.55-1.02); EST Glomerular Filtration Rate 33 mL/min (>60); Est Glom Filt Rate - Afr Amer 39 mL/min (>60); Estimated Creatinine Clearance 31.67 ml/min; Glucose 96 mg/dL (74-106); Potassium 3.2 mmol/L (3.5-5.1); Sodium Level 131 mmol/L (136-145)
[2021-03-02] MEDS: Potassium Chloride 10mEq/100mL 10 MEQ/100 ML IV.SOLN. 100 MEQ IV BOLUS ×4 (07:58→12:46)
[2021-03-02] MEDS: BENZOCAINE/MENTHOL 1 LOZENGE MUCOUS MEM (07:59)
--- NOTE | 2021-03-02 08:21 | PN.SURG_ITS ---
Subjective Subjective Patient has small amount of flatus not much of the NG overnight. Patient only complains of some incisional pain Objective Data Objective Data Vital Signs: Vital Signs Temp Pulse Resp BP Pulse Ox 97.8 F 91 16 128/61 H 99 03/02/21 04:30 03/02/21 04:30 03/02/21 04:30 03/02/21 04:30 03/02/21 04:30 Oxygen Flow Rate (L/min) 2 Oxygen Delivery Method Room Air Weight: 190 lb 14.725 oz Body Mass Index (BMI) 30.3 Intake & Output: Intake and Output for Last 24 Hours 02/28/21 03/01/21 03/02/21 23:59 23:59 23:59 Intake Total 1927.5 / 2127.5 2285.0 / 2285.0 Output Total 1000 / 1300 600 / 600 Balance 927.5 / 827.5 1685.0 / 1685.0 Lab / Micro Data Result Diagrams: 03/02/21 06:00 03/02/21 06:00 Labs: Laboratory Results - last 24 hr 03/01/21 11:00: WBC 10.2, RBC 4.82, Hgb 14.5, Hct 42.4, MCV 88.0, MCH 30.1, MCHC 34.2, RDW Std Deviation 39.8, RDW Coeff of Armando 12.3, Plt Count 466 H, MPV 8.4, Immature Gran % (Auto) 0.200, Neut % (Auto) 84.8 H, Lymph % (Auto) 7.2 L, [place] % (Auto) 7.5, Eos % (Auto) 0.0, Baso % (Auto) 0.3, Absolute Neuts (auto) 8.6 H, Absolute Lymphs (auto) 0.73 L, Nucleated RBC % 0 03/01/21 11:00: Sodium 122 L, Potassium 3.6, Chloride 81 L, Carbon Dioxide 33.0 H, Anion Gap 8, BUN 34 H, Creatinine 2.88 H, Estim Creat Clear Calc 18.47, Est GFR (MDRD) Af Amer 21 L, Est GFR (MDRD) Non-Af 18 L, BUN/Creatinine Ratio 11.8, Glucose 139 H, Calcium 10.9 H, Total Bilirubin 0.80, Direct Bilirubin 0.23, AST 33, ALT 26, Alkaline Phosphatase 122 H, Total Protein 9.6 H, Albumin 4.5, Angelina bulin 5.1 H 03/01/21 17:50: Sodium 127 L, Potassium 4.1, Chloride 84 L, Carbon Dioxide 32.0, Anion Gap 11, BUN 34 H, Creatinine 3.00 H, Estim Creat Clear Calc 17.74, Est GFR (MDRD) Af Amer 20 L, Est GFR (MDRD) Non-Af 17 L, BUN/Creatinine Ratio 11.3, Glucose 117 H, Calcium 9.1 03/02/21 06:00: WBC 8.0, RBC 3.97 L, Hgb 11.8 L, Hct 35.4 L, MCV 89.2, MCH 29.7, MCHC 33.3, RDW Std Deviation 39.9, RDW Coeff of Armando 12.1, Plt Count 356, MPV 8.6, Immature Gran % (Auto) 0.300, Neut % (Auto) 85.7 H, Lymph % (Auto) 4.8 L, [place] % (Auto) 8.2, Eos % (Auto) 0.6, Baso % (Auto) 0.4, Absolute Neuts (auto) 6.8, Absolute Lymphs (auto) 0.38 L, Nucleated RBC % 0 03/02/21 06:00: Sodium 131 L, Potassium 3.2 L, Chloride 94 L, Carbon Dioxide 29.0, Anion Gap 8, BUN 30 H, Creatinine 1.68 H, Estim Creat Clear Calc 31.67, Est GFR (MDRD) Af Amer 39 L, Est GFR (MDRD) Non-Af 33 L, BUN/Creatinine Ratio 17.9, Glucose 96, Calcium 7.9 L Micro: Microbiology 03/01/21 15:01 Mucosa - Nose SARS-CoV-2 Antigen (Rapid) - Final Radiography Diagnostic Testing: Radiology Impression Abdomen CT 03/01/21 12:20 IMPRESSION: Umbilical hernia containing small bowel causing proximal small bowel dilatation and obstruction. Electronically Signed: Severo Wright MD at 13:02 EDT , Service support , KUB X-Ray 03/01/21 14:59 IMPRESSION: Enteric tube in the stomach. at 1639 Reported and signed by: Rod Arnold MD Electronically Signed: Rod Arnold MD at 16:38 EDT Tel , Service support , Physical Exam Resp normal respiratory effort Cardio regular rate GI soft to palpation Inspection: Negative for abdominal distention Palpation: tender other (Appropriate near incision dressed clean dry and intact, no peritoneal signs) Assessment & Plan Assessment/Plan (1) Postoperative incisional hernia with obstruction: (2) Incarcerated incisional hernia: PLAN: Patient is doing well. Did have some flatus we will remove NG; when she has more bowel function will start clears and advance diet. Patient is able to have more bowel function tolerated diet possible DC later today. Hyponatremia improved., Hypokalemia replaced Soha Tellez M.D. Pager: [phone] [facility] [address] [place] [address], [address] [place] [address] Office: [phone]
[2021-03-02] MEDS: amLODIPine 5 MG Tablet PO (11:00)
[2021-03-02] MEDS: Lisinopril 20 MG Tablet PO (11:00)
--- NOTE | 2021-03-02 11:23 | CASEMGMT ---
VANESSA TAYLOR Assessment: Face to Face with pt for initial transition planning/care coordination assessment. RN BRANDON introduced self and role at [facility], pt voices understanding and consents to assessment. Pt is A/O x4 and answers all questions appropriately at this time. Pt and dtr present in room. Pt sitting up in chair in no distress. Care providers, pharmacy, and demographics verified/updated. Admitting Dx: hernia PCP:Angie Specialists:mejia Norris Pharmacy: [facility] Insurance: MMO Prescription Benefit: yes LW/HPOA: Pt states she has a LW/DPOA and her DPOA is her Codey. She is aware that it is not on file at [facility] and she may bring in at any time for it to be scanned into the chart. LNOK: Codey Riggs, Living Arrangements: Pt lives in a two story house with her with two steps to enter. Pt states she is I in ADL's and denies concerns at home. Transportation: Pt drives self and denies concerns with transportation. DME/HHC/SNF: Pt denies having any DME, hx of HHC or SNF stays. Pt states no concerns with going home at time of dc. Pt states no further concerns/needs. CM to follow. Advised pt to ask CM if any further question/concerns/needs arise, voices understanding. Pt Goal: Home Plan: Home with family support.
--- NOTE | 2021-03-02 11:53 | EX.PCM.DISCH ---
Discharge Instructions Diet Discharge Diet: Light diet - advance as tolerated Activity Discharge Activity: May Not Drive (while taking narcotic pain medications.) May shower in (days): 1 Lifting Restrictions: no lifting >20 lbs x 2 wks, no strenuous exercise for 4 wks Dressing / Incision Call your doctor if your incision/area has: Continuous Slow Oozing, Sudden Increased Bleeding, Increased Pain/ Swelling, Increased Redness, Foul Smelling Discharge and Swelling at the incision site Call your doctor if you observe: Fever of 101 or Higher Remove Dressing in: 2 days Cleanse incision/area with: Soap & Water Additional Dressing/Incision Instructions:: Steri-Strips will fall off in 7 to 10 days, if they do not fall off okay to remove after 10 days. Follow Up Care Please Follow Up With: Soha eTllez MD When: Call the office for a follow-up appointment 2 weeks; after 5 PM and on the weekends call [phone] with any concerns. Test Results: Test results from this visit will be discussed in further detail at your follow-up appointment, if applicable. Discharge Plan Admission Admit Date/Time: 03/01/21 15:27 Attending Provider: Soha Tellez Primary Care Provider: Tonya Adams Consulting Providers: Rex Sykes Discharge Orders/Prescriptions Prescriptions: New oxycodone-acetaminophen 5-325 mg tablet 1 tab PO Q6H PRN (Reason: pain) 2 Days Qty: 7 RF: 0 Continued amlodipine 5 mg tablet 5 mg PO DAILY Qty: 30 RF: 0 lisinopril 20 mg tablet 20 mg PO BID Qty: 60 RF: 0 ropinirole 1 mg tablet 2 mg PO QHS RF: 0 acetaminophen [Tylenol Extra Strength] 500 mg Tablet 1,000 mg PO DAILY PRN (Reason: Pain) RF: 0 Referrals / Follow Up: Tonya Adams DO [Primary Care Provider] - Disposition Disposition (needs filled in before D/C Order can be placed): Home, Self Care
--- NOTE | 2021-03-02 13:31 | PN.HOSP_ITS ---
Subjective Subjective Patient was seen and examined today, she complains of a little sore throat but otherwise has no complaints. Objective Data Objective Data Vital Signs: Vital Signs Temp Pulse Resp BP Pulse Ox 97.8 F 91 16 128/61 H 99 03/02/21 04:30 03/02/21 04:30 03/02/21 04:30 03/02/21 04:30 03/02/21 04:30 Oxygen Flow Rate (L/min) 2 Oxygen Delivery Method Room Air Weight: 86.6 kg Body Mass Index (BMI) 30.3 Intake & Output: Intake and Output for Last 24 Hours 02/28/21 03/01/21 03/02/21 23:59 23:59 23:59 Intake Total 1927.5 / 2127.5 2678.5 / 2678.5 Output Total 1000 / 1300 600 / 600 Balance 927.5 / 827.5 2078.5 / 2078.5 Lab / Micro Data Result Diagrams: 03/02/21 06:00 03/02/21 06:00 Labs: Laboratory Results - last 24 hr 03/01/21 17:50: Sodium 127 L, Potassium 4.1, Chloride 84 L, Carbon Dioxide 32.0, Anion Gap 11, BUN 34 H, Creatinine 3.00 H, Estim Creat Clear Calc 17.74, Est GFR (MDRD) Af Amer 20 L, Est GFR (MDRD) Non-Af 17 L, BUN/Creatinine Ratio 11.3, Glucose 117 H, Calcium 9.1 03/02/21 06:00: WBC 8.0, RBC 3.97 L, Hgb 11.8 L, Hct 35.4 L, MCV 89.2, MCH 29.7, MCHC 33.3, RDW Std Deviation 39.9, RDW Coeff of Armando 12.1, Plt Count 356, MPV 8.6, Immature Gran % (Auto) 0.300, Neut % (Auto) 85.7 H, Lymph % (Auto) 4.8 L, [place] % (Auto) 8.2, Eos % (Auto) 0.6, Baso % (Auto) 0.4, Absolute Neuts (auto) 6.8, Absolute Lymphs (auto) 0.38 L, Nucleated RBC % 0 03/02/21 06:00: Sodium 131 L, Potassium 3.2 L, Chloride 94 L, Carbon Dioxide 29.0, Anion Gap 8, BUN 30 H, Creatinine 1.68 H, Estim Creat Clear Calc 31.67, Est GFR (MDRD) Af Amer 39 L, Est GFR (MDRD) Non-Af 33 L, BUN/Creatinine Ratio 17.9, Glucose 96, Calcium 7.9 L Micro: Microbiology 03/01/21 15:01 Mucosa - Nose SARS-CoV-2 Antigen (Rapid) - Final Radiography Diagnostic Testing: Radiology Impression KUB X-Ray 03/01/21 14:59 IMPRESSION: Enteric tube in the stomach. at 1639 Reported and signed by: Rod Arnold MD Electronically Signed: Rod Arnold MD at 16:38 EDT Tel , Service support , Physical Exam Const alert, oriented x3, no apparent distress and healthy appearing General Appearance: cooperative, well kempt and well developed Orientation / Consciousness: awake, oriented to person, oriented to place and oriented to time HEENT normocephalic and moist oral mucous membranes Eyes PERRL, EOMs intact bilaterally and conjunctivae normal Neck nuchal rigidity, supple, no JVD, thyroid normal and no carotid bruits General: trachea midline Resp normal respiratory effort and clear to auscultation bilaterally Auscultation: Negative for rales, rhonchi or wheezes Cardio regular rate, regular rhythm, no murmurs, no rub and no gallops GI non-distended GI Narrative: NG tube in place Extremity no clubbing, cyanosis or edema Skin no rashes or lesions noted General Skin Exam: no breakdown Neuro oriented x3, CN's II-XII intact bilaterally, no focal motor deficits and no sensory deficits noted Sensorium / Orientation: awake and alert Speech: speech normal Psych thought process normal and affect normal Assessment & Plan Assessment/Plan (1) HTN (hypertension): (2) Hyponatremia: PLAN: 1. Acute kidney injury-patient's renal functions are improved today, she will need follow-up labs as an outpatient #2 hyponatremia-patient's sodium today is 131 #3 essential hypertension-patient can resume her home medications after discharge #4 status post surgery for incarcerated incisional hernia Patient appears medically stable at this time Charges/Coding Visit Charges Inpatient E&M: 40949 Subs Hosp L2
[2021-03-02 14:12] VITALS: BP 146/78; PULSE 80; RESP 18; TEMP 36.7; O2SAT 96
[2021-03-02] MEDS: Acetaminophen 325 MG Tablet 650 MG PO (14:17)
[2021-03-02 14:42] LABS: Creatinine, Serum 1.27 mg/dL (0.55-1.02); EST Glomerular Filtration Rate 45 mL/min (>60); Est Glom Filt Rate - Afr Amer 54 mL/min (>60); Estimated Creatinine Clearance 41.89 ml/min
== END 2021-03-02 16:25 | disposition home or self-care (01) ==
LOC: ED 15:05 → SDC 15:12 → MS3 15:17 → SDC 03-02 09:16 → MS3 03-02 09:44
PROVIDERS: Admitting Provider Surgery; Emergency Provider Emergency Medicine; PCP Internal Medicine; Visit Provider Surgery
PROC: (CPT 49561; principal; 2021-03-01 15:45)
DX: K43.0 Incisional hernia with obstruction, without gangrene (principal); M19.90 Unspecified osteoarthritis, unspecified site; I10 Essential (primary) hypertension; N17.9 Acute kidney failure, unspecified; E87.1 Hypo-osmolality and hyponatremia; Z79.899 Other long term (current) drug therapy; E87.6 Hypokalemia
CPT/HCPCS: 49561; 36415; 74018; 74176; 80048; 80076; 82565; 85025; 87426; 88302; 93005; 96361; 96365; 96366; 96375; 99218; 99251; 99285; J7030; A4216; G0378; G0463; J2405

== ENCOUNTER 2021-11-23 10:30 | Outpatient (RCR) | payer OTHER, MEDICARE, BC, SELFPAY ==
--- NOTE | 2021-09-26 11:49 | HP.PTEVAL ---
Patient's Visit Information KATIE GARCIA is a 66 year old F referred to Physical Therapy by Dr. Cristhian Arguello MD with a diagnosis of Right triple arthrodesis 08/09/2021. Date of Evaluation: 09/26/21 Physical Therapist: Marah Russ DPT - Visit Plan Frequency: 3x /Week Duration: 4 Weeks Plan: 08/09/2021 Right triple arthrodesis. WBAT in aircast boot- okay to remove boot for therapy. Focus on LE and core strength/stabilization, proprioception and functional mobility. - Subjective Patient reports that she has had foot problems since 2011- she finally had right triple arthrodesis. WBAT in aircast boot- okay to remove boot for therapy. She was in a splint for 2 weeks with no weight- then switched to the boot- but still no weight bearing. Was given WBAT on Friday09/21/2021 and sent to therapy. She was using a walker but is better with crutches. Lives in a two story home and is doing stairs non recip. Fully I prior to surgery- wants to get back to walking. Worst: 5/10 Agg: being on it for to long, standing. Best: 0/10 Eases: Tylenol, rest, ice. Pain is located in the anterior portion of the ankle and on the lateral aspect of the malleolus and down the 5th met. Describes the pain as dull and achy. No pain that radiates up the LE. No N/T the toes. No falls since surgery. Is driving a little bit. Saw him on Friday and he took x-rays and everything looks great. Goes back to November 02, 2021. Work: retired- but she is very active. Wants to get back to all of her normal activities. Sleep: not disturbed. Got in/out of the shower without the boot- but has not walked without the CAM walker. PMHx/Meds: no change since March. - Objective Posture: FH, RS- can correct with verbal cues. Gait: antalgic- decrease stance on the right LE- CAM walker with axillary crutches. SLS: weight shift but unable to SLS due to pain. Stairs: asc/desc non recip- bilateral UE on rails. Girth: Malls: 30 cm Figure 8: 55 cm Mets: 24 cm. Observation: incisions healing well. ROM: DF: neutral, PF: 20 degrees, Iver: 10 degrees, ER: 5 degrees. Strength: Core: fair minus, Hip: 4/5, Knee: 5/5, Ankle: 3+/5 in available range. Flex: HS: severe, Gastroc: severe, Soleus: severe - Balance/Special Test Scores Lower Extremity Functional Score: 44 - Goals Goal 1:: Patient will be I with HEP and progression Goal Time Frame: 4-6 Weeks Goal 2:: Patient will ambulate >300 feet with a normalized gait pattern and no AD Goal Time Frame: 4-6 Weeks Goal 3:: Patient will SLS 15 sec without LOB Goal Time Frame: 4-6 Weeks Goal 4:: Patient will report back to all normal ADL's Goal Time Frame: 4-6 Weeks - Rehabilitation Potential Physical Therapy Diagnosis: Patient presents with hypomobility- she has decreased pain free ROM, LE and core strength/stabilization, proprioception, flex and muscular endurance leading to abnormal gait pattern and decreased ability to perform ADL's Rehabilitation Potential: Good - Anticipated Interventions Patient/Client Instruction: Educate patient on: Benefits of Fitness Program Therapeutic Exercise to Include: Strength training, Endurance training, Balance training, Coordination, Agility training, Body mechanics, Postural training, Flexibilty training, Gait and locomotor training, Neuromotor development, Passive ROM, Active ROM, Dynamic Lumbar Stabilization, Scapular Strength/Stabilization For the Purpose of:: To improve muscle performance and motor function TENS: Yes Cryotherapy (ice pack, ice massage): Yes Thermo therapy (hot pack): Yes Ultrasound (thermal/non thermal): No Vasopneumatic device: Yes Thank you for the opportunity to evaluate your patient. For Medicare and Medicare HMO plans, please review the plan of care and approve it. It will need to be FAXED BACK to us at [phone] for Medicare purposes. For Medicare only, by signing this I certify the plan of care. Please let me know if there are questions or concerns regarding this plan of care. Physician Signature: Date:
--- NOTE | 2021-10-23 11:48 | HP.PTREVAL ---
Dr. Cristhian Arguello MD, It has been my pleasure to treat KATIE GARCIA over the last 8 visits for Right triple arthrodesis 08/09/2021. Please see the progress note below for an update on the physical therapy plan of care! Subjective: Patient reports that her foot is great, no pain- she is using CAM all the time- until she sees on November 02. Objective/Function: Posture: FH, RS- can correct with verbal cues. Gait: slight antalgic with shoes- decreased stance on the right LE- has difficulty with TKE. SLS: weight shift but unable to SLS due to weakness. Stairs: asc/desc recip- bilateral UE on rails. Girth: Malls: 27.5 cm Figure 8: 54 cm Mets: 22.5 cm. Observation: incisions healing well. ROM: DF: neutral, PF: 30 degrees, Iver: 10 degrees, ER: 5 degrees. Strength: Core: fair minus, Hip: 4/5, Knee: 5/5, Ankle: 4/5 in available range. Flex: HS: severe, Gastroc: severe, Soleus: severe Plan Plan: 10/23/21: Continue current precautions- Therapy in shoe. 08/09/2021 Right triple arthrodesis. WBAT in aircast boot- okay to remove boot for therapy. Focus on LE and core strength/stabilization, proprioception and functional mobility. Balance/Gait/Functional tests - Balance/Special Test Scores Lower Extremity Functional Score: 61 Goals Goal 1:: Patient will be I with HEP and progression Goal Time Frame: 4-6 Weeks Goal Progress: Progressing Goal 2:: Patient will ambulate >300 feet with a normalized gait pattern and no AD Goal Time Frame: 4-6 Weeks Goal Progress: Progressing Goal 3:: Patient will SLS 15 sec without LOB Goal Time Frame: 4-6 Weeks Goal Progress: Progressing Goal 4:: Patient will report back to all normal ADL's Goal Time Frame: 4-6 Weeks Goal Progress: Progressing Anticipated Interventions Patient/Client Instruction: Educate patient on: Benefits of Fitness Program Therapeutic Exercise to Include: Strength training, Endurance training, Balance training, Coordination, Agility training, Body mechanics, Postural training, Flexibilty training, Gait and locomotor training, Neuromotor development, Passive ROM, Active ROM, Dynamic Lumbar Stabilization, Scapular Strength/Stabilization For the Purpose of:: To improve muscle performance and motor function TENS: Yes Cryotherapy (ice pack, ice massage): Yes Thermo therapy (hot pack): Yes Ultrasound (thermal/non thermal): No Vasopneumatic device: Yes Please do not hesitate to contact me at [phone] by phone or if you have questions or concerns regarding this new plan of care! Sincerely, MAYURI GalindoT
--- NOTE | 2021-11-23 10:55 | HP.PTDCSUM ---
It has been my pleasure to treat KATIE GARCIA referred by Dr. Cristhian Arguello MD, with the diagnosis of Right triple arthrodesis 08/09/2021 for a total of 15 visit(s). Discharge Date: Please see the following information for a summary of their discharge status. Subjective: Patient reports that the foot is doing great- the swelling is down. She mowed the yard Friday using her right foot and she was able to do it without issues. She is doing stairs more and on the TM. No pain in the ankle. She knows that she will need to continue to work it. R ankle Pain Intensity (Out of 10): 0 L hip Pain Intensity (Out of 10): 0 % Improvement: 95 Objective/Function: Posture: fair in a hardback chair. Gait: slight antalgic with shoes- decreased stance on the right LE- has difficulty with TKE. SLS: 2 seconds. Stairs: asc/desc recip- single hand rail. Girth: Malls: 26 cm Figure 8: 51.5 cm Mets: 22.5 cm. Observation: incisions healing well. ROM: DF: 5, PF: 30 degrees, Iver: 15 degrees, ER: 5 degrees. Strength: Core: fair minus, Hip: 4+/5, Knee: 5/5, Ankle: 4+/5 in available range. Flex: HS: severe, Gastroc: severe, Soleus: severe Goal 1:: Patient will be I with HEP and progression Goal Progress: Goal Met Goal 2:: Patient will ambulate >300 feet with a normalized gait pattern and no AD Goal Progress: Progressing Goal 3:: Patient will SLS 15 sec without LOB Goal Progress: Progressing Goal 4:: Patient will report back to all normal ADL's Goal Progress: Progressing Plan: Discharge to I home exercise program. If there are questions or concerns regarding this patient's physical therapy, please feel free to call me at [phone]. Thank you for the referral of this patient. Sincerely, Marah Russ, DPT Balance/Gait/Functional tests - Balance/Special Test Scores Lower Extremity Functional Score: 60
== END 2021-11-23 12:33 | disposition home or self-care (01) ==
LOC: PT 10:30
PROVIDERS: PCP Internal Medicine
DX: M76.821 Posterior tibial tendinitis, right leg (principal); M19.079 Primary osteoarthritis, unspecified ankle and foot
CPT/HCPCS: 97110; 97164

== ENCOUNTER 2022-05-03 23:57 | Emergency (ER) | payer MEDICARE, BC, SELFPAY ==
[2022-05-03 23:57] VITALS: BP 177/83; PULSE 82; RESP 15; TEMP 36.6; O2SAT 96; BMI 30.7
[2022-05-04] MEDS: Ketorolac 30 MG/ML Syringe IM (00:29)
--- NOTE | 2022-05-04 00:40 | RAD_ITS ---
STUDY: X-RAY - UNILATERAL RIBS ( RIGHT ) WITH CHEST REASON FOR EXAM: Female, 66 years old. pain TECHNIQUE - RIBS: 2 view(s) of the ribs. TECHNIQUE - CHEST: Frontal view COMPARISON: CT abdomen pelvis 03/01/2021. FINDINGS - RIBS: Acute displaced right posterior/lateral seventh, eighth, and ninth rib fractures. No other visible fractures. FINDINGS - CHEST: LUNGS: No evidence of pneumonia, pulmonary edema, pneumothorax or pleural effusion. Mild subsegmental bibasilar atelectasis. MEDIASTINUM, BROOKS: Cardiac silhouette, hilar and mediastinal contours with no acute findings. Heart size normal. Atherosclerosis of the thoracic aorta. BONES: Degenerative osseous changes, right scoliosis lumbar spine. UPPER ABDOMEN: No apparent free intraperitoneal air. RAD/Ribs Uni Min 3V w/PA Chest IMPRESSION: Acute displaced right posterior/lateral seventh, eighth, and ninth rib fractures. No apparent pneumothorax. Electronically Signed: Salbador Cristobal MD at 1:26 EDT Reading Location ID and State: [facility] [place] Tel , Service support ,
--- NOTE | 2022-05-04 01:42 | EDS_ITS ---
HPI History of Present Illness Chief Complaint: Fall Narrative Narrative: Patient is a 66-year-old female with past medical history of hypertension. She states that she and her went to her son's this evening. She 10:00 when she tripped and fell striking a planter with the right side of her chest/ribs. She denies striking her head any loss of consciousness or blood thinner use. She states she was able to get back up and walk to the car but as she was returning home she began having increased pain in her right ribs. She states she took hkgs-hcr-ildjcfd medication with minimal symptom improvement and had concerned about a rib fracture and secondary to this comes in for evaluation [facility] Medical History (Updated 05/04/22 @ 04:[address] Moncho Ospina, ) Arthritis HTN (hypertension) Non-smoker Postoperative incisional hernia with obstruction Home Medications amlodipine 5 mg tablet 5 mg PO DAILY #30 tabs 05/11/19 [History Last Taken 02/27/21] lisinopril 20 mg tablet 20 mg PO BID #60 tabs 05/11/19 [History Last Taken 02/27/21] acetaminophen 500 mg tablet (Tylenol Extra Strength) 1,000 mg PO DAILY PRN Pain 03/01/21 [History Last Taken 02/26/21] ropinirole 1 mg tablet 2 mg PO QHS RLS 03/01/21 [History Last Taken 02/28/21] oxycodone-acetaminophen 5 mg-325 mg tablet 1 tab PO Q6H PRN pain 2 days #7 tabs 03/02/21 [Rx Last Taken Unknown] ondansetron 4 mg disintegrating tablet 4 mg PO TID PRN PRN nausea and vomiting #21 tabs 05/04/22 [Rx Last Taken Unknown] oxycodone-acetaminophen 5 mg-325 mg tablet (Endocet) 1 tab PO Q6H PRN pain 3 days #12 tabs 05/04/22 [Rx Last Taken Unknown] Allergy/AdvReac Type Severity Reaction Status Date / Time Iodinated Contrast Media AdvReac Other Verified 05/04/22 00:00 [CONTRASTS] Family History Mother Rheumatoid arthritis Surgical History (Updated 03/16/21 @ 08:57 by Jody Bhat) H/O hernia repair H/O ventral hernia repair S/P hip replacement S/P small bowel resection Social History Smoking Status: Never smoker ROS ROS ED Constitutional Constitutional ED: Denies chills or fever(s) Eyes Eyes: Denies change in vision ENT ENT ED: Denies sore throat Cardiovascular Cardiovascular: Denies chest pain Respiratory/Chest Respiratory/Chest: Denies cough or dyspnea Gastrointestinal Gastrointestinal: Denies abdominal pain, diarrhea, nausea or vomiting Genitourinary Genitourinary ED: Denies dysuria or hematuria Musculoskeletal Musculoskeletal: Reports other Details: Positive right rib/chest wall pain ; Denies back pain, myalgias or neck pain Integumentary Denies Abrasions or rash Neurologic Neurologic: Denies headache(s) Hematologic/Lymphatic Hematologic/Lymphatic: Denies easy bleeding or easy bruising EXAM Physical Exam Const Vital Signs: 05/03/22 23:57 05/04/22 00:13 05/04/22 01:57 Temperature 97.9 F Temperature Source Temporal Pulse Rate 82 81 Respiratory Rate 15 15 Respiratory Effort Normal Respiratory Depth Shallow Respiratory Pattern Normal Blood Pressure 177/83 H 156/82 H Blood Pressure Mean 114 Pulse Ox 96 98 Oxygen Delivery Method Room Air Room Air Positive well nourished and well developed General Appearance ED: well developed HEENT HEENT Narrative: No signs of depressed or basilar skull fracture Eyes PERRL and EOMs intact bilaterally Neck supple Neck Narrative: No bony forming or step-off of the cervical spine no midline pain with palpation Chest Wall Chest Narrative: Patient has reproducible pain with palpation of the right anterior lateral chest wall rib regions 8-11 without obvious bony deformity or crepitance Resp normal respiratory effort and clear to auscultation bilaterally Cardio regular rate and regular rhythm GI normal to inspection, nondistended, normoactive bowel sounds, non-tender, non- distended and no masses GI Narrative: No voluntary guarding or rigidity no pulsatile mass Auscultation: normoactive bowel sounds Palpation: soft Back/Spine Back/Spine Narrative: No bony deformity or step-off of the thoracic or lumbar spine no midline pain with palpation Extremity normal to inspection Extremity Narrative: Pelvis is stable there is no shortening or external rotation of either lower extremity and patient can move all extremities without difficulty Neuro oriented x3 and CN's II-XII intact bilaterally Sensorium / Orientation: alert Psych mental status grossly normal Skin no rashes or lesions noted Skin Narrative: No abrasions or ecchymosis noted MDM MDM MDM Narrative Medical decision making narrative: Patient presented to the ER hypertensive but is in pain and has a history of this. She reported mechanical fall so there was no need for cardiac or syncope work-up. With her pain along the right lower ribs there is concern for rib fracture versus pneumothorax or hemothorax and therefore a right rib series was obtained. This confirmed right seventh eighth and ninth rib fractures without pneumothorax. The patient was given Toradol and Percocet and had improvement of her pain. At this time the history and exam correlate she does not have a pneumothorax requiring a chest tube and she has no need for supplemental oxygen. Therefore there is no need to place her in the hospital and should be given pain control and is otherwise safe for discharge. Radiography Diagnostic Testing: Clinical Impression(s) from Imaging Studies Ribs w/Chest X-Ray 05/04/22 00:40 IMPRESSION: Acute displaced right posterior/lateral seventh, eighth, and ninth rib fractures. No apparent pneumothorax. Electronically Signed: Salbador Cristobal MD at 1:26 EDT Reading Location ID and State: [address] [place] [address] Tel , Service support , Right rib series with 1 view chest as interpreted by the emergency medicine physician shows a acute right seventh eighth and ninth rib fracture without pneumothorax infiltrate or pleural effusion Discharge Plan Triage Chief Complaint: Fall ED Provider: Moncho Ospina Dx/Rx/DC Orders Clinical Impression: Multiple rib fractures, HTN (hypertension) Instructions: ED Rib Fracture Prescriptions: New oxycodone-acetaminophen [Endocet] 5-325 mg tablet 1 tab PO Q6H PRN (Reason: pain) 3 Days Qty: 12 0RF ondansetron 4 mg tablet,disintegrating 4 mg PO TID PRN PRN (Reason: nausea and vomiting) Qty: 21 0RF No Action amlodipine 5 mg tablet 5 mg PO DAILY Qty: 30 lisinopril 20 mg tablet 20 mg PO BID Qty: 60 ropinirole 1 mg tablet 2 mg PO QHS acetaminophen [Tylenol Extra Strength] 500 mg Tablet 1,000 mg PO DAILY PRN (Reason: Pain) oxycodone-acetaminophen 5-325 mg tablet 1 tab PO Q6H PRN (Reason: pain) 2 Days Qty: 7 0RF Primary Care Provider: Tonya Adams Referrals: Tonya Adams DO [Primary Care Provider] - Activity Restrictions/Additional Instructions: Please make sure you are using your incentive spirometer once an hour while you are awake to take deep breaths and prevent pneumonia. Please return to the ER should you have any further concerns Disposition Disposition: Home, Self Care Discharge Date/Time: 05/04/22 02:10
[2022-05-04] MEDS: oxyCODONE 5 MG Tablet 10 MG PO (01:52)
[2022-05-04 01:57] VITALS: BP 156/82; PULSE 81; RESP 15; O2SAT 98
== END 2022-05-04 02:10 | disposition home or self-care (01) ==
PROVIDERS: Emergency Provider Emergency Medicine; PCP Internal Medicine; Visit Provider Emergency Medicine
DX: S22.41XA Multiple fractures of ribs, right side, initial encounter for closed fracture (principal); I10 Essential (primary) hypertension; W01.198A Fall on same level from slipping, tripping and stumbling with subsequent striking against other object, initial encounter; Z79.899 Other long term (current) drug therapy
CPT/HCPCS: 71101; 96372; 99283

== ENCOUNTER 2023-06-17 10:00 | Outpatient (RCR) | payer MEDICARE, BC, SELFPAY ==
--- NOTE | 2023-05-09 11:51 | HP.PTEVAL ---
Patient's Visit Information Visit Information Visit Information: KATIE GARCIA is a 67 year old F referred to Physical Therapy by Dr. Baldev Norris MD with a diagnosis of Left Hip Bursitis. Date of Evaluation: 05/09/23 Physical Therapist: Marah Russ DPT Visit Plan Frequency: 2-3x /Week Duration: 4 Weeks Plan: Aquatic Therapy: Focus on LE and Core Strength/Stabilization Supine Clam with BTB, Side Lying Clam with BTB (if pain less than 5/10 while performing), Piriformis Stretch Supine or Seated Subjective Subjective: Patient reports that they were on vacation and she has a left THR that is doing really well- she was carrying an arm full of bedding out of the motor home and the handle broke lose and she fell and hit the ground and landed on the left hip- this happened in February. She only has pain when she lifts her leg quickly and crosses it over to put her socks on or when she gets up in the morning. The pain is located in the left buttock. If she takes Tylenol the pain complete goes away. Best: 0/10 Worst: 9/10. Its more a grabbing pain- sharp and burning. It does radiate down to the mid hamstring. She takes aqua classes 2x a week and they don't bother her at all- she doesn't do any land exercise. Sleep: does not wake her up- but when she wakes up to go to the restroom it will wake her up. She did take predisone dose pack- but does not feel that it made any difference. No N/T in the area. X-rays looked good. They want to try therapy and if no change then they would do an MRI. She has had issues with her back for years on/off. She tries to be active at home and is coming to to work out during the week. She does travel with her . PMHX:hernia surgery since last year- no changes since ED visit 2021 Objective Objective: Posture: FH, RS- can correct with verbal cues but does not maintain Gait: slightly antalgic- due to decreased full knee extension on the right knee (OA)- decreased compa- valgus bilateral- increased hip drop bilateral HR/TR: able with UE A SLS: weight shift with mild hip drop bilateral Strength: Core: poor Knee: 4+/5 Hip: Flexion: Left: 4-/5 cramping immediate with SLR Right: 4+/5 Abd: 4/5 pain 5/10 with clam Add: 4+/5 IR/ER neutral: 4/5 Extn: 4/5 Ankle: 4+/5 Flex: HS: moderate, Gastroc: moderate ROM: WFL Palpation: tender along glut med, piriformis and greater troch Special Tests L Hip DORIE - Intraarticular Pathology: Positive L Hip Trendelenberg - Glut Medius: Positive Balance/Special Test Scores Lower Extremity Functional Score: 50 Goals Goal 1:: Patient will report participation in home exercise program activities a minimum of 5 days per week, as adjunct to skilled physical therapy intervention in preparation for independent home management upon discharge. Goal Time Frame: 4-6 Weeks Goal 2:: Patient will report an increase of 9 points on the LEFS to show minimal clinical significant difference on patients functional outcome measure. Goal Time Frame: 4-6 Weeks Goal 3:: Patient will single leg stance for 5 seconds without loss of balance to demonstrate improved balance and increase safety with ADL?s. Goal Time Frame: 4-6 Weeks Goal 4:: Patient will report no pain for 1 week with ADL's Goal Time Frame: 4-6 Weeks Rehabilitation Potential Physical Therapy Diagnosis: Patient presents with hypomobility- she has decreased LE and core strength/stabilization, flex and muscular endurance leading to poor posture and increased pain with ADL's Rehabilitation Potential: Good Anticipated Interventions Patient/Client Instruction: Educate patient on: Benefits of Fitness Program Therapeutic Exercise to Include: Strength training, Endurance training, Balance training, Coordination, Agility training, Body mechanics, Postural training, Flexibilty training, Gait and locomotor training, Neuromotor development, In an aquatic setting, Dynamic Lumbar Stabilization and Scapular Strength/Stabilization For the Purpose of:: To improve muscle performance and motor function Text: Thank you for the opportunity to evaluate your patient. For Medicare and Medicare HMO plans, please review the plan of care and approve it. It will need to be FAXED BACK to us at [phone] for Medicare purposes. For Medicare only, by signing this I certify the plan of care. Please let me know if there are questions or concerns regarding this plan of care. Physician Signature: Date:
--- NOTE | 2023-06-17 10:26 | HP.PTDCSUM ---
Discharge Summary D/C summary: It has been my pleasure to treat KATIE GARCIA referred by Dr. Baldev Norris MD, with the diagnosis of Left Hip Bursitis for a total of 10 visit(s). Discharge Date: 06/17/23 Please see the following information for a summary of their discharge status. Subjective Subjective: Pt is going to see the Dr destinee about her knee. She is 100% better in her hip. She feels comfortable doing her exercises. She is probably going to need a cortizone shot Pain L hip: Pain Intensity (Out of 10): 0 R knee: Pain Intensity (Out of 10): 3 Overall Improvement % Improvement: 100 Objective Objective/Function: Pt challenged with BDB core exercises and needing min VCs for glute and core engagement with GREAT carryover noted. Pt doing well with all exs today with no c/o increased pain. Pt to meet with PT at next visit and pt is able to continue with pool exercises independently from here. Pt agreeable to this as well. Goals Goal 1:: Patient will report participation in home exercise program activities a minimum of 5 days per week, as adjunct to skilled physical therapy intervention in preparation for independent home management upon discharge. Goal Progress: Progressing Goal 2:: Patient will report an increase of 9 points on the LEFS to show minimal clinical significant difference on patients functional outcome measure. Goal Progress: Goal Met Goal 3:: Patient will single leg stance for 5 seconds without loss of balance to demonstrate improved balance and increase safety with ADL?s. Goal Progress: Progressing Goal 4:: Patient will report no pain for 1 week with ADL's Goal Progress: Goal Met Plan Plan: DC PT to Indep AT program D/C Information Discharge Comments: DC PT to I pool routine d/c sentence: If there are questions or concerns regarding this patient's physical therapy, please feel free to call me at [phone]. Thank you for the referral of this patient. Sincerely, Rika Lo, MPT Balance/Gait/Functional tests Balance/Special Test Scores Lower Extremity Functional Score: 78 Improvement % Improvement: 100
== END 2023-06-17 19:00 | disposition home or self-care (01) ==
LOC: PT 10:00
PROVIDERS: PCP Internal Medicine; Referring Provider Specialist; Visit Provider Specialist
DX: S70.02XD Contusion of left hip, subsequent encounter (principal); M70.62 Trochanteric bursitis, left hip; Z96.642 Presence of left artificial hip joint
CPT/HCPCS: 97110; 97113; 97162; 97530

== ENCOUNTER → 2023-10-06 | Outpatient (CLI) | payer MEDICARE, BC, SELFPAY ==
--- NOTE | 2023-10-06 11:40 | EKG12_ITS ---
Test Reason : PRE OP Blood Pressure : / mmHG Vent. Rate : 089 BPM Atrial Rate : 089 BPM P-R Int : 154 ms QRS Dur : 074 ms QT Int : 342 ms P-R-T Axes : 053 019 046 degrees QTc Int : 416 ms Normal sinus rhythm Normal ECG Confirmed by Tino Pope ([id number]), editorial director LEXI MCDONALD ([id number]) on 10/07/2023 7:43:32 AM Referred By: Baldev Norris Confirmed By:Tino Pope
--- NOTE | 2023-10-06 11:41 | CT_ITS ---
CT RIGHT LOWER EXTREMITY WITH 3-D IMAGING CLINICAL INDICATION: PAIN RIGHT KNEE TECHNIQUE: Axial CT images of the right lower extremity was performed without IV contrast material. Coronal and sagittal reformats were provided. RADIATION DOSAGE (If Supplied By Facility): CTDIvol = ( 18.84 ) mGy, DLP = ( 1308.39 ) mGycm COMPARISON: None. FINDINGS: Bones: Normal right hip. There is a left hip arthroplasty in place. There is mild tricompartment degenerative arthrosis of the right knee with mild joint space narrowing, small marginal osteophyte formation, and areas of subchondral sclerosis in the lateral femorotibial compartment. There are fusion screws across the talonavicular, calcaneocuboid, and subtalar joints. Osseous structures are intact without evidence of fracture or dislocation. No lytic or blastic osseous masses. Soft Tissues: There is a moderate knee joint effusion. The deep soft tissue structures are unremarkable. The superficial soft tissues are unremarkable without evidence of edema, hematoma, or foreign body. CT/Extremity Lower without Contra IMPRESSION: Mild tricompartment degenerative arthrosis of the right knee joint. Moderate knee joint effusion. Electronically Signed: Roberto Nolan MD at 12:33 EST ,
[2023-10-06 12:44] LABS: Absolute Neutrophil Count 4.4 X10^3/uL (2.0-7.7); Basophil# 0.06 X10^3/uL; Basophil% 0.8 % (0-1); Eosinophil# 0.17 X10^3/uL; Eosinophils% 2.4 % (0-5); Hematocrit 41.3 % (37-47); Hemoglobin 13.4 g/dL (12.0-15.0); Lymphocyte % 25.4 % (19-41); Mean Corp Hgb Conc 32.4 g/dL (32-36); Mean Corpuscular Hgb 28.9 pg (27.0-32.0); Mean Corpuscular Volume 89.2 fL (81-99); Mean Platelet Vol. 9.1 fl (6.2-12.0); Monocyte# 0.65 X10^3/uL; Monocyte% 9.2 % (0-10); NRBC Flagged by Analyzer 0 % (0-5); Neutrophil # 4.39 X10^3/uL (2.7-7.7); Neutrophil % 61.9 % (47-70); Platelet Count 466 K/mm3 (150-450); RBC Distribution Width CV 12.8 % (11.6-14.6); RBC Distribution Width SD 41.7 fl (35.1-43.9); Red Blood Count 4.63 M/mm3 (4.2-5.4); White Blood Count 7.1 K/mm3 (4.4-11.0)
[2023-10-06 13:20] LABS: Albumin, Serum 3.9 g/dL (3.2-5.0); Anion Gap 7 (5-15); BUN 21 mg/dL (7-18); BUN/Creat Ratio 19.6 RATIO (10-20); Calcium,Total 9.6 mg/dL (8.5-10.1); Chloride 98 mmol/L (98-107); Creatinine, Serum 1.07 mg/dL (0.55-1.02); EST Glomerular Filtration Rate 54 mL/min (>60); Est Glom Filt Rate - Afr Amer 66 mL/min (>60); Glucose 103 mg/dL (74-106); Potassium 4.4 mmol/L (3.5-5.1); Sodium Level 132 mmol/L (136-145)
== END | disposition home or self-care (01) ==
LOC: CT 11:37
PROVIDERS: PCP Internal Medicine; Referring Provider Specialist; Visit Provider Specialist
DX: Z01.818 Encounter for other preprocedural examination (principal); M25.561 Pain in right knee; M17.0 Bilateral primary osteoarthritis of knee; M21.061 Valgus deformity, not elsewhere classified, right knee
CPT/HCPCS: 36415; 73700; 80048; 82040; 85025; 93005

== ENCOUNTER → 2024-04-14 | Outpatient (CLI) | payer MEDICARE, BC, SELFPAY ==
[2024-04-14 12:25] LABS: Erythrocyte Sedimentation Rate 15 mm/hr (0-30)
[2024-04-14 12:30] LABS: Absolute Lymphocyte Count 1.55 X10^3/uL (0.83-4.51); Absolute Neutrophil Count 3.6 X10^3/uL (2.0-7.7); Basophil# 0.06 X10^3/uL; Eosinophils% 1.7 % (0-5); Hematocrit 38.8 % (37-47); Hemoglobin 12.9 g/dL (12.0-15.0); Lymphocyte # 1.55 X10^3/ul (0.83-4.51); Lymphocyte % 26.8 % (19-41); Mean Corp Hgb Conc 33.2 g/dL (32-36); Mean Corpuscular Hgb 29.7 pg (27.0-32.0); Mean Corpuscular Volume 89.4 fL (81-99); Mean Platelet Vol. 8.9 fl (6.2-12.0); Monocyte# 0.46 X10^3/uL; Monocyte% 7.9 % (0-10); NRBC Flagged by Analyzer 0 % (0-5); Neutrophil % 62.3 % (47-70); Platelet Count 478 K/mm3 (150-450); RBC Distribution Width CV 12.3 % (11.6-14.6); RBC Distribution Width SD 40.1 fl (35.1-43.9); Red Blood Count 4.34 M/mm3 (4.2-5.4); White Blood Count 5.8 K/mm3 (4.4-11.0)
[2024-04-14 15:29] LABS: ALB/GLOB Ratio 0.8 RATIO (0.9-2.4); AST(SGOT) 19 U/L (15-37); Alanine Aminotransfer ALT/SGPT 20 U/L (13-56); Albumin, Serum 3.6 g/dL (3.2-5.0); Alkaline Phosphatase 139 U/L (45-117); Anion Gap 6 (5-15); BUN 18 mg/dL (7-18); BUN/Creat Ratio 18.2 RATIO (10-20); CRP < 2.90 mg/L (0.0-3.0); Calcium,Total 9.5 mg/dL (8.5-10.1); Chloride 99 mmol/L (98-107); Cholesterol 238 mg/dL (200); Creatinine, Serum 0.99 mg/dL (0.55-1.02); EST Glomerular Filtration Rate 59 mL/min (>60); Est Glom Filt Rate - Afr Amer 72 mL/min (>60); Globulin 4.6 g/dL (2.2-4.2); Glucose 102 mg/dL (74-106); High Density Lipoprotein 131 mg/dL; Potassium 4.5 mmol/L (3.5-5.1); Protein, Total 8.2 g/dL (6.4-8.2); Rheumatoid Factor < 10.0 IU/mL (<15); Sodium Level 132 mmol/L (136-145); Triglycerides 47 mg/dL; Very Low Density Lipoprotein 9 mg/dL (5-40)
[2024-04-16 14:10] LABS: ANTINUCLEAR ANTIBODIES DIRECT Negative (Negative); CCP IgG Antibodies 5 units (0-19)
== END | disposition home or self-care (01) ==
LOC: BFHLAB 11:02
PROVIDERS: PCP Nurse Practitioner Family; Referring Provider Nurse Practitioner Family; Visit Provider Nurse Practitioner Family
DX: I10 Essential (primary) hypertension (principal); E78.5 Hyperlipidemia, unspecified; M25.50 Pain in unspecified joint; Z82.61 Family history of arthritis
CPT/HCPCS: 36415; 80053; 80061; 85025; 85652; 86038; 86140; 86200; 86431

== ENCOUNTER → 2024-05-03 | Outpatient (CLI) | payer MEDICARE, BC, SELFPAY | END | disposition home or self-care (01) | LOC: SL 11:07 | PROVIDERS: PCP Nurse Practitioner Family; Referring Provider Nurse Practitioner Family; Visit Provider Nurse Practitioner Family | DX: R06.83 Snoring (principal); R40.0 Somnolence; G47.10 Hypersomnia, unspecified | CPT/HCPCS: 95806 ==

== ENCOUNTER → 2024-05-05 | Outpatient (CLI) | payer MEDICARE, BC, SELFPAY ==
--- NOTE | 2024-05-05 08:48 | BD_ITS ---
STUDY: DUAL ENERGY X-RAY ABSORPTIOMETRY / DXA REASON FOR EXAM: Female, 68 years old. Z13.820 TECHNIQUE: Bone Mineral Density (BMD) measurements of lumbar spine and right hip were obtained. COMPARISON: None. FINDINGS: Lumbar Spine (L1-L4): g/cm2 (1.039) / T-score (-0.1) / Z-score (1.9) Findings are suggestive of normal bone density with a low fracture risk. Right Femur Total: g/cm2 (0.735) / T-score (-1.7) / Z-score (-0.3) Right Femoral Neck: g/cm2 (0.554) / T-score (-2.7) / Z-score (-1.0) BD/Dexa Bone Density Study IMPRESSION: The patient is considered osteoporotic as outlined below according to World Otilio Organization (WHO) criteria with a high fracture risk. Reference Information: The T-score is the number of standard deviations above or below the standard which is normal for young adults at their peak bone mineral density. The World Health Organization (WHO) interprets the T-scores as follows: Above -1 Normal bone density Between -1 and -2.5 Osteopenia Equal to / or below -2.5 Osteoporosis As a practical clinical guideline, osteopenia may be graded as follows: Mild -1 through -1.5 Moderate -1.6 through -2.0 Severe -2.1 through -2.4 The Z-score is the number of standard deviations above or below age-matched controls. A Z-score of less than -1.5 would be considered abnormal. References: 1. NIH Osteoporosis and Related Bone Diseases www osteo.org 2. International Society for Clinical Densitometry www iscd.org 3. National Osteoporosis Foundation www nof.org Electronically Signed: Severo Wright MD at 14:56 EDT ,
== END | disposition home or self-care (01) ==
LOC: OPBD 08:36
PROVIDERS: PCP Nurse Practitioner Family; Referring Provider Nurse Practitioner Family; Visit Provider Nurse Practitioner Family
DX: Z13.820 Encounter for screening for osteoporosis (principal); M81.0 Age-related osteoporosis without current pathological fracture
CPT/HCPCS: 77080

== ENCOUNTER → 2024-05-11 | Outpatient (CLI) | payer MEDICARE, BC, SELFPAY | END | disposition home or self-care (01) | LOC: SL 14:14 | PROVIDERS: PCP Nurse Practitioner Family; Visit Provider Nurse Practitioner Family | DX: Z00.00 Encounter for general adult medical examination without abnormal findings (principal) ==

== ENCOUNTER 2024-07-16 07:30 | Outpatient (RCR) | payer MEDICARE, BC, SELFPAY ==
--- NOTE | 2024-05-31 10:54 | HP.PTEVAL_ITS ---
Patient's Visit Information Visit Information Visit Information: KATIE GARCIA is a 68 year old F referred to Physical Therapy by Dr. Baldev Norris MD with a diagnosis of R patellar fracture. Date of Evaluation: 05/31/24 Physical Therapist: Nehemiah Kirk, PT, ATC Visit Plan Frequency: 2-3x /Week Duration: 4-6 Weeks Plan: R LE stretching and strengthening, core stab ex's, balance and proprio, nustep, and HEP Subjective Subjective: Pt reports she had a R TKA performed in October of this year. Pt reports she was camping 10 weeks ago when she was descending stairs and experienced a loud popping sensation. Pt reports after receiving xrays, it was revealed she fractured her R patella. Pt reports she was placed into a brace for 6 weeks, and now ordered to begin PT. Pt reports she has been diagnosed with osteoporosis. Pt reports she is still in pain today. Pt reports she has been exercising in her aquatic group exercise sessions with minimal to no increase in pain. Pt notes she has stairs at home that she has to negotiate one step at a time. Pt reports sleep difficulty at this time if she sleeps with her R knee bent. Pt is retired at this time. 0/10 pain while sitting at rest, 3/10 pain at worst Pain R patella: Pain Intensity (Out of 10): 0 Pain Intensity Range: 3 Objective Objective: Neuro: B LE sensation is WNL to light touch. ROM: R knee 0-14-135 degrees; L knee 0-140 degrees MMT: L knee flex= 30, ext= 52 #F; R knee flex= 32, ext= 24 #F TU seconds Balance/Special Test Scores Lower Extremity Functional Score: 53 Goals Goal 1:: Decrease R knee pain x 50% to aid with sleep Goal Time Frame: 4-6 Weeks Goal 2:: Increase R knee extension strength to 30 #F to aid with stair negotiation Goal Time Frame: 4-6 Weeks Goal 3:: Increase R knee extension ROM to 0 degrees to aid with restoring a more normalized gait pattern Goal Time Frame: 4-6 Weeks Goal 4:: I with HEP Goal Time Frame: 4-6 Weeks Rehabilitation Potential Physical Therapy Diagnosis: Pt has R knee pain, weakness, and limited ROM secondary to R patellar fracture Rehabilitation Potential: Good Anticipated Interventions Patient/Client Instruction: Educate patient on: Condition and Plan of Care For the Purpose of:: To improve self management Therapeutic Exercise to Include: Strength training, Endurance training, Balance training, Flexibilty training, Gait and locomotor training, Active ROM and Dynamic Lumbar Stabilization For the Purpose of:: To decrease pain, To increase ROM and To improve muscle performance and motor function Cryotherapy (ice pack, ice massage): Yes For the Purpose of:: To decrease pain Text: Thank you for the opportunity to evaluate your patient. For Medicare and Medicare HMO plans, please review the plan of care and approve it. It will need to be FAXED BACK to us at [phone] for Medicare purposes. For Medicare only, by signing this I certify the plan of care. Please let me know if there are questions or concerns regarding this plan of care. Physician Signature: Date:
--- NOTE | 2024-07-16 07:59 | HP.PTDCSUM ---
Discharge Summary D/C summary: It has been my pleasure to treat KATIE GARCIA referred by Dr. Baldev Norris MD, with the diagnosis of R patellar fracture for a total of 9 visit(s). Discharge Date: Please see the following information for a summary of their discharge status. Subjective Subjective: I dont really have pain today, I am just really weak Pain R patella: Pain Intensity (Out of 10): 0 R ankle: Pain Intensity (Out of 10): 4 Overall Improvement % Improvement: 50 Objective Objective/Function: R knee pain is 0/10 R knee ext MMT 46 #F R knee ext ROM 0 degrees Pt is I with HEP Rx goals achieved Goals Goal 1:: Decrease R knee pain x 50% to aid with sleep Goal Progress: Goal Met Goal 2:: Increase R knee extension strength to 30 #F to aid with stair negotiation Goal 3:: Increase R knee extension ROM to 0 degrees to aid with restoring a more normalized gait pattern Goal 4:: I with HEP Plan Plan: Discharge to HEP D/C Information d/c sentence: If there are questions or concerns regarding this patient's physical therapy, please feel free to call me at [phone]. Thank you for the referral of this patient. Sincerely, Nehemiah Kirk, PT, ATC Balance/Gait/Functional tests Balance/Special Test Scores Lower Extremity Functional Score: 55 Improvement % Improvement: 50
== END 2024-07-16 10:27 | disposition home or self-care (01) ==
LOC: PT 07:30
PROVIDERS: PCP Nurse Practitioner Family; Referring Provider Specialist; Visit Provider Specialist
DX: S82.031D Displaced transverse fracture of right patella, subsequent encounter for closed fracture with routine healing (principal); M17.11 Unilateral primary osteoarthritis, right knee; Z96.651 Presence of right artificial knee joint
CPT/HCPCS: 97110; 97161; 97530

== ENCOUNTER → 2024-08-26 | Outpatient (CLI) | payer MEDICARE, BC, SELFPAY | END | disposition home or self-care (01) | LOC: SL 10:05 | PROVIDERS: PCP Nurse Practitioner Family; Visit Provider Nurse Practitioner Family | DX: Z46.89 Encounter for fitting and adjustment of other specified devices (principal) ==

== ENCOUNTER → 2024-08-31 | Outpatient (CLI) | payer MEDICARE, BC, SELFPAY | END | disposition home or self-care (01) | LOC: SL 20:11 | PROVIDERS: PCP Nurse Practitioner Family; Visit Provider Nurse Practitioner Family | DX: G47.33 Obstructive sleep apnea (adult) (pediatric) (principal) | CPT/HCPCS: 95811 ==

== ENCOUNTER → 2024-09-27 | Outpatient (CLI) | payer MEDICARE, BC, SELFPAY ==
[2024-09-27 08:07] LABS: Hematocrit 32.8 % (37-47); Hemoglobin 10.9 g/dL (12.0-15.0); Mean Corp Hgb Conc 33.2 g/dL (32-36); Mean Corpuscular Hgb 30.1 pg (27.0-32.0); Mean Corpuscular Volume 90.6 fL (81-99); Mean Platelet Vol. 8.9 fl (6.2-12.0); Platelet Count 432 K/mm3 (150-450); RBC Distribution Width CV 12.7 % (11.6-14.6); RBC Distribution Width SD 41.6 fl (35.1-43.9); Red Blood Count 3.62 M/mm3 (4.2-5.4)
[2024-09-28 06:58] LABS: Anion Gap 7 (5-15); BUN 14 mg/dL (7-18); BUN/Creat Ratio 17.8 RATIO (10-20); Calcium,Total 9.4 mg/dL (8.5-10.1); Chloride 100 mmol/L (98-107); Creatinine, Serum 0.79 mg/dL (0.55-1.02); EST Glomerular Filtration Rate 77 mL/min (>60); Est Glom Filt Rate - Afr Amer 94 mL/min (>60); Glucose 99 mg/dL (74-106); Potassium 4.6 mmol/L (3.5-5.1); Sodium Level 132 mmol/L (136-145)
== END | disposition home or self-care (01) ==
LOC: LAB 07:33
PROVIDERS: PCP Nurse Practitioner Family; Referring Provider Physician Assistant Surgical; Visit Provider Physician Assistant Surgical
DX: D64.89 Other specified anemias (principal); E87.1 Hypo-osmolality and hyponatremia
CPT/HCPCS: 36415; 80048; 85027

== ENCOUNTER 2024-12-23 11:00 | Outpatient (RCR) | payer MEDICARE, BC, SELFPAY ==
--- NOTE | 2024-11-15 11:29 | HP.PTEVAL_ITS ---
Patient's Visit Information Visit Information Visit Information: KATIE GARCIA is a 69 year old F referred to Physical Therapy by Dr. Baldev Norris MD with a diagnosis of DISPLACED TRANSVERSE FX PATELLA DELAY HEALING ,RIGHT ARTIFICIAL KNEE JOINT. Date of Evaluation: 11/15/24 Physical Therapist: Masoud Grijalva, PT, Cert MDT, OCS Visit Plan Frequency: 2x /Week Duration: 12 WEESK Plan: PATIENT UNDERWENT S/O ORIF PATELLA DUE TO POOR HEALING PATIENT UNABLE TO MAINTAIN PWB RLE 50% WITH GAIT WITH FULL LEG CAST 6 WEEKS OF FULL LEG CAST PT INTERVENTIONS: - WORK ON BUE /LLE STRENGTH -GAIT TRAINING WITH 50% START IN II BARS -BALANCE TRAINING WITH 50% PWB Subjective Subjective: This 69 y/o female presents to physical therapy with repair of patella from fx thus underwent s/p ORIF patella Sep 21 at [facility] D/C to home with fww and 50% PWB..Patient seen Dr on NovemberNovember 05 placed in full leg hard cast and continue with PWB 50% . Post op shoe is to small . Patient reports she had a R TKA performed in October of this year. Pt reports she was camping 10 weeks ago when she was descending stairs and experienced a loud popping sensation. Patient had x-rays 2 weeks. Pt reports after receiving x- rays, it was revealed she fractured her R patella. RTD December 17 . Patient denies pain.Denies paresthesia/tingling.Patient fww ,bedside commode and w/c .Patient lives in [facility] with 2 steps to enter.with railing. Patient able to able dressing. Patient has walk-in shower with stool. Patient spouse helps with shower . Patient has difficulty sleeping . Patient condition affects QOL and function and gait. Patient goals to return to prior level of function. SOCIAL: VOCATION: single Objective Objective: POSTURE: mild forward posture OBSERVATION: hard cast entire ankle to hip GAIT: ambulate with FWW with 50% PWB RLE with full leg ( maintain unable PWB RLE 50%) NEURO: denies paresthesia/tingling TRANSFERS: sit-stand with mod I BALANCE: fair+ with fww AROM: left leg WNL MMT: left quads/ham/hip 4/5 ,ankle 5/5 ,right unable due to cast Balance/Special Test Scores Lower Extremity Functional Score: 11 Goals Goal 1:: Patient to be I with HEP strengthening BUE and LLE Goal Time Frame: 8-12 Weeks Goal 2:: Patient be able to maintain 50%PWB with walker 50Ft Goal Time Frame: 8-12 Weeks Goal 3:: Patient vaughn improve LFES score by 5 points to improve QOL Goal Time Frame: 8-12 Weeks Goal 4:: PT to assess ROM Right knee when cast is removed Goal Time Frame: 8-12 Weeks Goal 5:: PT to assess strength when cast is removed Goal Time Frame: 8-12 Weeks Rehabilitation Potential Physical Therapy Diagnosis: Patient has multiple complexity with Fx right patella thus had ORIF patella right knee then 09/21 ,then place in hard cast / with 50% PWB and patient unable PWB RLE with 50% with fww and patient to have hard cast on 6 weeks then remove hard cast possible removed thus has impairments with unable able to manage PWB 50% ,weakness and decrease balance. Discussed with patient use W/C Rehabilitation Potential: Fair Anticipated Interventions Patient/Client Instruction: Educate patient on: Condition and Plan of Care For the Purpose of:: To decrease pain, To increase ROM, To improve muscle pe rformance and motor function, To improve ability to perform ADL's, To increase tolerance to activity/condition/position, To improve gait and locomotor functions, To increase flexibility/ROM, To improve endurance, To improve balance, To improve safety with gait and To reduce risk of recurrence Therapeutic Exercise to Include: Strength training, Endurance training, Balance training and Gait and locomotor training Comment: LLE 50% PWB RLE For the Purpose of:: To decrease pain, To improve muscle performance and motor function, To increase tolerance to activity/condition/position, To improve ability of physical actions for home/community/work/leisure, To improve gait and locomotor functions, To increase flexibility/ROM, To improve endurance, To improve balance, To improve safety with gait, To improve safety and To improve tolerance to ADL's Text: Thank you for the opportunity to evaluate your patient. For Medicare and Medicare HMO plans, please review the plan of care and approve it. It will need to be FAXED BACK to us at [phone] for Medicare purposes. For Medicare only, by signing this I certify the plan of care. Please let me know if there are questions or concerns regarding this plan of care. Physician Signature: Date:
--- NOTE | 2024-12-23 11:28 | HP.PTDCSUM ---
Discharge Summary D/C summary: It has been my pleasure to treat KATIE GARCIA referred by Dr. Baldev Norris MD, with the diagnosis of DISPLACED TRANSVERSE FX PATELLA DELAY HEALING ,RIGHT ARTIFICIAL KNEE JOINT for a total of 5 visit(s). Discharge Date: 12/23/24 Please see the following information for a summary of their discharge status. Subjective Subjective: Seen DR last Friday removed cast Place in [place] brace brace locked when walking with WBTA RLE with crutches want PT done at [facility] Overall Improvement % Improvement: 10 Objective Objective/Function: POSTURE: mild forward posture OBSERVATION: [place] brace GAIT: ambulate with crutches [place] locked with WBAT NEURO: denies paresthesia/tingling TRANSFERS: sit-stand with mod I BALANCE: fair+ with fww AROM: right knee poor MMT: left quads/ham/hip 4/5 ,ankle 5/5 ,too weak right knee Goals Goal 1:: Patient to be I with HEP strengthening BUE and LLE Goal Progress: Progressing Goal 2:: Patient be able to maintain 50%PWB with walker 50Ft Goal Progress: Goal Met Goal 3:: Patient vaughn improve LFES score by 5 points to improve QOL Goal Progress: Progressing Goal 4:: PT to assess ROM Right knee when cast is removed Goal Progress: Not Progressing Goal 5:: PT to assess strength when cast is removed Goal Progress: Not Progressing Plan Plan: D/C D/C Information Discharge Comments: resume PT AT [facility] d/c sentence: If there are questions or concerns regarding this patient's physical therapy, please feel free to call me at [phone]. Thank you for the referral of this patient. Sincerely, Masoud Grijalva, PT, Cert MDT, OCS Balance/Gait/Functional tests Balance/Special Test Scores Lower Extremity Functional Score: 11 Improvement % Improvement: 10
== END 2024-12-23 19:00 | disposition home or self-care (01) ==
LOC: PT 11:00
PROVIDERS: PCP Nurse Practitioner Family; Referring Provider Specialist; Visit Provider Specialist
DX: S82.031 Displaced transverse fracture of right patella (principal); Z47.1 Aftercare following joint replacement surgery; Z96.651 Presence of right artificial knee joint
CPT/HCPCS: 97110; 97162; 97530

== ENCOUNTER → 2025-04-18 | Outpatient (CLI) | payer MEDICARE, BC, SELFPAY ==
[2025-04-18 15:28] LABS: Hematocrit 40.2 % (37-47); Hemoglobin 13.4 g/dL (12.0-15.0); Immature Granulocytes Count 0.030 X10^3/uL (0.0-0.0); Mean Corp Hgb Conc 33.3 g/dL (32-36); Mean Corpuscular Volume 88.7 fL (81-99); Mean Platelet Vol. 8.7 fl (6.2-12.0); NRBC Flagged by Analyzer 0 % (0-5); Platelet Count 462 K/mm3 (150-450); RBC Distribution Width CV 13.1 % (11.6-14.6); RBC Distribution Width SD 42.4 fl (35.1-43.9); Red Blood Count 4.53 M/mm3 (4.2-5.4); White Blood Count 5.9 K/mm3 (4.4-11.0)
[2025-04-18 16:09] LABS: AST(SGOT) 22 U/L (<=31); Alanine Aminotransfer ALT/SGPT 15 U/L (<=34); Albumin, Serum 4.1 g/dL (3.4-4.8); Alkaline Phosphatase 131 U/L (35-104); Anion Gap 13 (5-15); BUN 12 mg/dL (4-19); BUN/Creat Ratio 13.7 RATIO (10-20); CORTISOL AM 13.30 ug/dL (6.02-18.40); Calcium,Total 9.3 mg/dL (7.6-11.0); Carbon Dioxide 21.7 mmol/L (21.0-32.0); Chloride 94 mmol/L (98-108); Cholesterol 245 mg/dL (<=200); Globulin 3.5 g/dL (2.2-4.2); Glucose 208 mg/dL (70-99); Low Density Lipoprotein Calc. 106 mg/dL; Potassium 4.3 mmol/L (3.3-5.1); Triglycerides 58 mg/dL; Very Low Density Lipoprotein 12 mg/dL (5-40); cholesterol:hdl ratio screen 1.93
== END | disposition home or self-care (01) ==
LOC: BFHLAB 11:03
PROVIDERS: PCP Nurse Practitioner Family; Visit Provider Nurse Practitioner Family
DX: I10 Essential (primary) hypertension (principal); E78.5 Hyperlipidemia, unspecified; R63.5 Abnormal weight gain; R73.01 Impaired fasting glucose
CPT/HCPCS: 36415; 80053; 80061; 82533; 83036; 85025